=== PATIENT | female | born 1955 | race Caucasian/White ===

== ENCOUNTER 2018-07-23 13:46 | Emergency (ER) | payer OTHER, SELFPAY ==
--- NOTE | 2018-07-23 13:46 | ED_ITS ---
HPI - Abdominal Pain <Phil CRISTINA Marie - Last Filed: 07/23/18 22:41> General Chief Complaint: Abdominal Pain Stated Complaint: Severe L abd. Pain Time Seen by Provider: 07/23/18 13:46 Source: patient Mode of arrival: ambulatory Limitations: no limitations History of Present Illness HPI narrative: 62-year-old female with history of kidney stones denies any surgical history here for complaint of left flank and abdominal pain that started yesterday. She was seen in her clinic on a the eyelid yesterday and was diagnosed with a kidney stone she was placed on tamulosin and hydrocodone. She is flown by [employer] from [place] for further evaluation today. She states she denies having any blood in her urine. No fevers no chills. She denies any trauma to the area. She reports positive p.o. intake. She denies any urinary symptoms. She denies any other concerns or complaints at this time. MD complaint: abdominal pain and flank pain Related Data Home Medications Medication Instructions Recorded Confirmed naproxen sodium [Aleve] 220 mg PO Q DAY PRN #0 04/29/11 Previous Rx's Medication Instructions Recorded tamsulosin [Flomax] 0.4 mg PO QDAY PRN #30 cap 07/29/13 hydrocodone-acetaminophen [Def[place]] 0 PO Q4HP PRN #20 tab 10/31/16 mupirocin 1 dev TOPICAL SEE INSTRUCTIONS #22 11/06/16 gm colchicine 0.6 mg PO QDAY #100 tab 12/25/16 diclofenac sodium [Voltaren] 2 % TOPICAL BID #100 gm 01/09/17 acyclovir [Zovirax] 400 mg PO TID #15 tab 02/12/17 allopurinol 300 mg PO QDAY #90 tab 02/12/17 amoxicillin 500 mg PO BIDCC #40 tab 02/12/17 atorvastatin [Lipitor] 20 mg PO HS #90 tab 02/12/17 benazepril-hydrochlorothiazide 1 tab PO QDAY #90 tab 02/12/17 cyclobenzaprine 10 mg PO PRN #30 tab 05/19/17 ondansetron 4 mg PO Q6-8H PRN #10 tab 07/23/18 oxycodone-acetaminophen [Percocet] 1 tab PO Q4-6H PRN #20 tab 07/23/18 Allergies Allergy/AdvReac Type Severity Reaction Status Date / Time codeine Allergy Verified 07/23/18 15:20 Review of Systems <CRISTINA Schwartz - Last Filed: 07/23/18 22:41> Review of Systems All systems reviewed & are unremarkable except as noted in HPI and below Constitutional Denies chills, Denies fever(s), Denies lethargy and Denies weakness Eyes Denies change in vision, Denies eye discharge, Denies irritation and Denies loss of vision ENT Ears, Nose, Mouth, and Throat: Denies change in voice, Denies neck pain and Denies sore throat Cardiovascular Denies chest pain, Denies irregular heart rhythm, Denies lightheadedness, Denies palpitations, Denies dyspnea, Denies dyspnea on exertion and Denies orthopnea Respiratory Denies cough, Denies dyspnea, Denies dyspnea on exertion and Denies wheezing Gastrointestinal Gastrointestinal: Reports abdominal pain Genitourinary Comments: Flank pain Musculoskeletal Denies neck pain Neurologic Denies confusion, Denies loss of vision and Denies weakness Psychiatric Denies anxiety, Denies confusion, Denies depression, Denies homicidal ideation and Denies suicidal ideation Endocrine Denies palpitations Allergic/Immunologic Denies wheezing Exam <CRISTINA Schwartz - Last Filed: 07/23/18 22:41> Initial Vital Signs Initial Vital Signs: Vital Signs Temperature 98.7 F 07/23/18 13:56 Pulse Rate 87 07/23/18 13:56 Respiratory Rate 16 07/23/18 13:56 Blood Pressure 100/65 07/23/18 13:56 Pulse Oximetry 100 07/23/18 13:56 Const General: cooperative and well developed Nutritional Appearance: well nourished Orientation: alert, awake, oriented x3 and not confused [facility] Mouth: oral mucosae normal and moist mucous membranes Eyes Conjunctivae: conjunctivae normal Sclera: sclerae normal Pupils: PERRL EOM: EOM intact bilaterally Resp Effort & Inspection: normal respiratory effort, able to speak in complete sentences, no respiratory distress and no use of accessory muscles Auscultation: clear to auscultation bilaterally, no rales, no rhonchi and no wheezes Cardio Rate: regular rate Rhythm: regular rhythm Heart Sounds: no click, no gallops, no murmurs and no rubs Pulses: normal peripheral pulses GI Inspection: non-distended Palpation: soft, no hepatosplenomegaly, No guarding, No pulsatile mass and tender (Tenderness to the left lateral abdomen on palpation) Auscultation: normal bowel sounds General: No CVA tenderness Skin General: no rashes or lesions noted, No jaundice and No petechiae Neuro General: alert, oriented x3, gait normal and no focal motor deficits Speech: speech normal <Alistair Matos DO - Last Filed: 07/24/18 03:45> Initial Vital Signs Initial Vital Signs: Vital Signs Temperature 98.7 F 07/23/18 13:56 Pulse Rate 87 07/23/18 13:56 Respiratory Rate 16 07/23/18 13:56 Blood Pressure 100/65 07/23/18 13:56 Pulse Oximetry 100 07/23/18 13:56 Course <CRISTINA Schwartz - Last Filed: 07/23/18 22:41> Orders Ordered: Discontinued Medications Hydromorphone HCl (Dilaudid) 0.5 mg IV NOW ONE Stop: 07/23/18 15:20 Last Admin: 07/23/18 15:28 Dose: 0.5 mg Hydromorphone HCl (Dilaudid) 0.5 mg IV NOW ONE Stop: 07/23/18 19:04 Last Admin: 07/23/18 19:11 Dose: 0.5 mg Hydromorphone HCl (Dilaudid) 0.5 mg IV NOW ONE Stop: 07/23/18 20:45 Last Admin: 07/23/18 20:49 Dose: 0.5 mg Sodium Chloride (Normal Saline 0.9%) 1,000 mls @ 150 mls/hr IV CONT GUERO Last Infusion: 07/23/18 21:53 Dose: 0 mls/hr Admin: 07/23/18 15:28 Dose: 150 mls/hr Ketorolac Tromethamine (Toradol) 15 mg INJ NOW ONE Stop: 07/23/18 15:52 Last Admin: 07/23/18 15:52 Dose: 15 mg Ondansetron HCl (Zofran) 4 mg IV NOW ONE Stop: 07/23/18 21:02 Last Admin: 07/23/18 21:02 Dose: 4 mg Vital Signs - 8 hr 07/23/18 21:06 Pulse Rate 89 Respiratory Rate 14 Blood Pressure [Right Arm] 128/87 H Pulse Oximetry 97 <Alistair Matos DO - Last Filed: 07/24/18 03:45> Orders Ordered: Discontinued Medications Hydromorphone HCl (Dilaudid) 0.5 mg IV NOW ONE Stop: 07/23/18 15:20 Last Admin: 07/23/18 15:28 Dose: 0.5 mg Hydromorphone HCl (Dilaudid) 0.5 mg IV NOW ONE Stop: 07/23/18 19:04 Last Admin: 07/23/18 19:11 Dose: 0.5 mg Hydromorphone HCl (Dilaudid) 0.5 mg IV NOW ONE Stop: 07/23/18 20:45 Last Admin: 07/23/18 20:49 Dose: 0.5 mg Sodium Chloride (Normal Saline 0.9%) 1,000 mls @ 150 mls/hr IV CONT GUERO Last Infusion: 07/23/18 21:53 Dose: 0 mls/hr Admin: 07/23/18 15:28 Dose: 150 mls/hr Ketorolac Tromethamine (Toradol) 15 mg INJ NOW ONE Stop: 07/23/18 15:52 Last Admin: 07/23/18 15:52 Dose: 15 mg Ondansetron HCl (Zofran) 4 mg IV NOW ONE Stop: 07/23/18 21:02 Last Admin: 07/23/18 21:02 Dose: 4 mg Vital Signs - 8 hr 07/23/18 21:06 Pulse Rate 89 Respiratory Rate 14 Blood Pressure [Right Arm] 128/87 H Pulse Oximetry 97 MDM - Abdominal Pain <CRISTINA Schwartz - Last Filed: 07/23/18 22:41> Lab Data Result diagrams: 07/23/18 14:38 07/23/18 14:38 Lab Results 07/23/18 07/23/18 Range/Units 14:38 14:38 WBC 11.1 H (4.5-11.0) X10^3/uL RBC 4.56 (4.0-5.2) X10^6/uL Hgb 13.8 (12.0-16.0) g/dL Hct 40.3 (36-46) % MCV 88.4 (80-100) fL MCH 30.2 (26-34) PG MCHC 34.2 (30-36) % RDW 14.4 (11.6-14.8) % Plt Count 196 (150-400) X10^3/uL Neut % (Auto) 77.3 H (50-75) % Lymph % (Auto) 14.6 L (25-40) % [place] % (Auto) 6.1 (3-14) % Eos % (Auto) 1.3 L (2-4) % Baso % (Auto) 0.7 (0-2) % Neut # (Auto) 8600 H (3346-5662) /uL Sodium 137 (137-145) mmol/L Potassium 4.0 (3.4-5.1) mmol/L Chloride 98 (98-107) mmol/L Carbon Dioxide 31 (22-32) mmol/L BUN 21 H (7-17) mg/dL Creatinine 1.00 (0.52-1.04) mg/dL Estimated GFR 55.8 L (>60) mL/min BUN/Creatinine Ratio 21.0 (6-22) Glucose 94 (80-110) mg/dL Calcium 9.0 (8.4-10.2) mg/dL Total Bilirubin 0.9 (0.2-1.3) mg/dL AST 22 (14-36) IU/L ALT 28 (9-52) IU/L Alkaline Phosphatase 86 (38-126) U/L Total Protein 6.2 L (6.3-8.2) g/dL Albumin 3.6 (3.5-5.0) g/dL Globulin 2.6 (1.7-4.1) g/dL Albumin/Globulin Ratio 1.4 (1.0-2.8) Lipase 372 H (23-300) U/L Point of care testing: Urine Dip Bedside Urine Glucose Negative Bedside Urine Bilirubin - Negative Bedside Urine Ketone - Negative Urine Specific [place] 1.015 Bedside Urine Occult Blood +++ Bedside Urine pH 5.5 Bedside Urine Protein - Negative Bedside Urine Urobilinogen - Negative Bedside Urine Nitrite - Negative Bedside Urine Leukocytes - Negative Esterase Imaging Data CT scan - abdomen: Radiologist's impression: PROCEDURE: CT ABDOMEN PELVIS W CON INDICATIONS: Pain into the left flank and left lower quadrant area TECHNIQUE: After the administration of intravenous contrast, 5 mm thick sections acquired from the diaphragm to the symphysis. 5 mm coronal and sagittal reformats were acquired. For radiation dose reduction, the following was used: automated exposure control, adjustment of mA and/or kV according to patient size. COMPARISON: [facility], CT, ABDOMEN/PELVIS WITH CONTRAST, 04/14/2011, 8: 31. [facility], CT, ABDOMEN/PELVIS WITH CONTRAST, 04/07/2011, 21:42. FINDINGS: Image quality: Excellent. ABDOMEN: Lung bases: Lung bases are clear except for minimal atelectasis at the right lower lobe. Heart size is normal. Solid organs: Liver is normal in size and enhancement. Gallbladder appears normal. Biliary system is non dilated. Pancreas enhances normally. Spleen is normal in size and enhancement. No adrenal nodules. Kidneys demonstrate normal size and enhancement, without hydronephrosis on the right but there is a 6 mm calculus at the lower third collecting system of the right kidney, nonobstructive. In contrast the left kidney shows a slight degree of perinephric edema and moderate hydronephrosis and there is a 3 x 4 mm calculus within the lower third collecting system of the left kidney, nonobstructive. The obstructive influence is at the left ureteral pelvic junction where a 10 mm AP and 7 mm transverse dimension calculus can be seen, impacted, with homogeneous high density measuring up to 917 Hounsfield units. Peritoneum and bowel: Bowel loops demonstrate normal wall thickness and caliber. No free fluid or air. Nodes and vessels: No retroperitoneal or mesenteric adenopathy by size criteria. Aorta and inferior vena cava are normal in size. Miscellaneous: There is a pelvic ventral hernia containing small bowel content through a body wall defect that measures up to 7 mm at the midline rectus sheath. This is located at the axial level of the anterior superior iliac spines and extends inferiorly within the subcutaneous fat of the pannus. PELVIS: Genitourinary: Bladder wall thickness is normal. Miscellaneous: No inguinal hernias or adenopathy. Bones: No suspicious bony lesions. No vertebral body compression fractures. IMPRESSION: High-grade left urinary tract obstruction due to the presence of a 7 x 10 mm impacted high density proximal left ureteropelvic junction calculus, producing mild perinephric edema. Bilateral renal collecting system calculi are also present within the lower third portion of each kidney, neither of which are obstructive. Moderately large ventral hernia at the midline of the abdomen/pelvis junction, and tracking inferiorly within the subcutaneous fat of the pannus. This measures up to 10 cm in transverse dimension and 8 cm AP. Incarceration or strangulation is not seen and no associated bowel obstruction is found. Dictated by: Tima Iglesias M.D. on 07/23/2018 at 16:13 Approved by: Tima Iglesias M.D. on 07/23/2018 at 16:19 MDM Narrative Medical decision making narrative: CBC was obtained was unremarkable. Chem panel shows elevated lipase otherwise is unremarkable. Urinalysis shows blood in her urine was negative for urinary tract infection. CT of the abdomen shows a large 7 mm x 10 mm stone into the utero pelvic junction. Discussed case with Urology Dr. Carrasquillo at who states that they would accept her however they do not have any beds at this time. She is placed on Percocet for pain and has tamulosin . Zofran is prescribed for nausea. She is to call the kidney stone center Thursday for follow-up. For any worsening symptoms return to the emergency room. <Alistair Matos, - Last Filed: 07/24/18 03:45> Lab Data Lab Results 07/23/18 07/23/18 Range/Units 14:38 14:38 WBC 11.1 H (4.5-11.0) X10^3/uL RBC 4.56 (4.0-5.2) X10^6/uL Hgb 13.8 (12.0-16.0) g/dL Hct 40.3 (36-46) % MCV 88.4 (80-100) fL MCH 30.2 (26-34) PG MCHC 34.2 (30-36) % RDW 14.4 (11.6-14.8) % Plt Count 196 (150-400) X10^3/uL Neut % (Auto) 77.3 H (50-75) % Lymph % (Auto) 14.6 L (25-40) % [place] % (Auto) 6.1 (3-14) % Eos % (Auto) 1.3 L (2-4) % Baso % (Auto) 0.7 (0-2) % Neut # (Auto) 8600 H (4080-3042) /uL Sodium 137 (137-145) mmol/L Potassium 4.0 (3.4-5.1) mmol/L Chloride 98 (98-107) mmol/L Carbon Dioxide 31 (22-32) mmol/L BUN 21 H (7-17) mg/dL Creatinine 1.00 (0.52-1.04) mg/dL Estimated GFR 55.8 L (>60) mL/min BUN/Creatinine Ratio 21.0 (6-22) Glucose 94 (80-110) mg/dL Calcium 9.0 (8.4-10.2) mg/dL Total Bilirubin 0.9 (0.2-1.3) mg/dL AST 22 (14-36) IU/L ALT 28 (9-52) IU/L Alkaline Phosphatase 86 (38-126) U/L Total Protein 6.2 L (6.3-8.2) g/dL Albumin 3.6 (3.5-5.0) g/dL Globulin 2.6 (1.7-4.1) g/dL Albumin/Globulin Ratio 1.4 (1.0-2.8) Lipase 372 H (23-300) U/L Point of care testing: Urine Dip Bedside Urine Glucose Negative Bedside Urine Bilirubin - Negative Bedside Urine Ketone - Negative Urine Specific Karnack 1.015 Bedside Urine Occult Blood +++ Bedside Urine pH 5.5 Bedside Urine Protein - Negative Bedside Urine Urobilinogen - Negative Bedside Urine Nitrite - Negative Bedside Urine Leukocytes - Negative Esterase Discharge Plan Departure Patient Disposition: Home Clinical Impression: Nephrolithiasis Discharge Date/Time: 07/23/18 21:53 Interventions: ED Discharge Assessment Last Done: 07/23/18 21:52 Instructions: DI for Kidney Stones Activity Restrictions/Additional Instructions: CT of the abdomen pelvis shows a large stone of 7 mm to 10 mm stone in your left ureter. You will need to see Urology for this as the stone appears to be too large to pass. Call kidney stone center at at [phone] Thursday morning to schedule follow-up appointment beginning of next week. You have been prescribed Percocet to help with pain use as directed. No driving while on the Percocet. May also use [id number] ibuprofen. Zofran is prescribed to help with nausea also use as directed. Use tamulosin as already prescribed. For any worsening symptoms return to the emergency room. Prescriptions: New oxycodone-acetaminophen [Percocet] 5-325 mg tablet 1 tab PO Q4-6H PRN (Reason: pain) Qty: 20 RF: 0 ondansetron 4 mg tablet,disintegrating 4 mg PO Q6-8H PRN (Reason: nausea and vomiting) Qty: 10 RF: 0 No Action naproxen sodium [Aleve] 220 MG tablet 220 mg PO Q DAY PRN Qty: 0 RF: 0 tamsulosin [Flomax] 0.4 MG capsule,extended release 24hr 0.4 mg PO QDAY PRNQty: 30 RF: 1 hydrocodone-acetaminophen [Def[place]] 5 MG/325 MG tablet PO Q4HP PRNQty: 20 RF: 0 mupirocin 2 % ointment 1 dev Topical SEE INSTRUCTIONS Qty: 22 RF: 0 colchicine 0.6 MG tablet 0.6 mg PO QDAY Qty: 100 RF: 0 diclofenac sodium [Voltaren] 1 % gel 2 % Topical BID Qty: 100 RF: 1 atorvastatin [Lipitor] 20 MG tablet 20 mg PO HS Qty: 90 RF: 3 benazepril-hydrochlorothiazide 20 MG/25 MG tablet 1 tab PO QDAY Qty: 90 RF: 3 acyclovir [Zovirax] 400 MG tablet 400 mg PO TID Qty: 15 RF: 3 allopurinol 300 MG tablet 300 mg PO QDAY Qty: 90 RF: 3 amoxicillin 500 MG tablet 500 mg PO BIDCC Qty: 40 RF: 0 cyclobenzaprine 10 MG tablet 10 mg PO PRN Qty: 30 RF: 1 Referrals: [facility] [Provider Group] <Alistair Matos, - Last Filed: 07/24/18 03:45> Cosign ED Attending Shoshanaature Attestation: I was immediately available in the department for consultation. Documentation has been reviewed. I agree with assessment and plan.
[2018-07-23 13:56] VITALS: BP 100/65; PULSE 87; RESP 16; TEMP 37.1; O2SAT 100
--- NOTE | 2018-07-23 14:23 | DI.CT.S_ITS ---
PROCEDURE: CT ABDOMEN PELVIS W CON INDICATIONS: Pain into the left flank and left lower quadrant area TECHNIQUE: After the administration of intravenous contrast, 5 mm thick sections acquired from the diaphragm to the symphysis. 5 mm coronal and sagittal reformats were acquired. For radiation dose reduction, the following was used: automated exposure control, adjustment of mA and/or kV according to patient size. COMPARISON: [facility], CT, ABDOMEN/PELVIS WITH CONTRAST, 04/14/2011, 8:31. [facility], CT, ABDOMEN/PELVIS WITH CONTRAST, 04/07/2011, 21:42. FINDINGS: Image quality: Excellent. ABDOMEN: Lung bases: Lung bases are clear except for minimal atelectasis at the right lower lobe. Heart size is normal. Solid organs: Liver is normal in size and enhancement. Gallbladder appears normal. Biliary system is non dilated. Pancreas enhances normally. Spleen is normal in size and enhancement. No adrenal nodules. Kidneys demonstrate normal size and enhancement, without hydronephrosis on the right but there is a 6 mm calculus at the lower third collecting system of the right kidney, nonobstructive. In contrast the left kidney shows a slight degree of perinephric edema and moderate hydronephrosis and there is a 3 x 4 mm calculus within the lower third collecting system of the left kidney, nonobstructive. The obstructive influence is at the left ureteral pelvic junction where a 10 mm AP and 7 mm transverse dimension calculus can be seen, impacted, with homogeneous high density measuring up to 917 Hounsfield units. Peritoneum and bowel: Bowel loops demonstrate normal wall thickness and caliber. No free fluid or air. Nodes and vessels: No retroperitoneal or mesenteric adenopathy by size criteria. Aorta and inferior vena cava are normal in size. Miscellaneous: There is a pelvic ventral hernia containing small bowel content through a body wall defect that measures up to 7 mm at the midline rectus sheath. This is located at the axial level of the anterior superior iliac spines and extends inferiorly within the subcutaneous fat of the pannus. PELVIS: Genitourinary: Bladder wall thickness is normal. Miscellaneous: No inguinal hernias or adenopathy. Bones: No suspicious bony lesions. No vertebral body compression fractures. IMPRESSION: High-grade left urinary tract obstruction due to the presence of a 7 x 10 mm impacted high density proximal left ureteropelvic junction calculus, producing mild perinephric edema. Bilateral renal collecting system calculi are also present within the lower third portion of each kidney, neither of which are obstructive. Moderately large ventral hernia at the midline of the abdomen/pelvis junction, and tracking inferiorly within the subcutaneous fat of the pannus. This measures up to 10 cm in transverse dimension and 8 cm AP. Incarceration or strangulation is not seen and no associated bowel obstruction is found. Dictated by: Tima Iglesias M.D. on 07/23/2018 at 16:13 Approved by: Tima Iglesias M.D. on 07/23/2018 at 16:19
[2018-07-23 14:34] VITALS: BP 112/60; PULSE 86; RESP 18; O2SAT 94
[2018-07-23 14:50] LABS: Add Manual Diff / Slide Review NO; Basophils Percent Auto 0.7 % (0-2); Eosinophils Percent Auto 1.3 % (2-4); Hematocrit 40.3 % (36-46); Hemoglobin 13.8 g/dL (12.0-16.0); Lymphocytes Percent Auto 14.6 % (25-40); Mean Corpuscular HGB Conc 34.2 % (30-36); Mean Corpuscular Hemoglobin 30.2 PG (26-34); Mean Corpuscular Volume 88.4 fL (80-100); Monocytes Percent Auto 6.1 % (3-14); Neutrophils Absolute Auto 8600 /uL (3000-5900); Neutrophils Percent Auto 77.3 % (50-75); Platelet Count 196 X10^3/uL (150-400); Red Blood Cell Count 4.56 X10^6/uL (4.0-5.2); Red Cell Distribution Width 14.4 % (11.6-14.8); White Blood Cell Count 11.1 X10^3/uL (4.5-11.0)
[2018-07-23 15:10] LABS: Alanine Aminotransferase 28 IU/L (9-52); Albumin 3.6 g/dL (3.5-5.0); Albumin Globulin Ratio 1.4 (1.0-2.8); Alkaline Phosphatase 86 U/L (38-126); Aspartate Aminotransferase 22 IU/L (14-36); Bilirubin Total 0.9 mg/dL (0.2-1.3); Blood Urea Nitrogen 21 mg/dL (7-17); Carbon Dioxide 31 mmol/L (22-32); Chloride 98 mmol/L (98-107); Estimated Glomerular Filt Rate 55.8 mL/min (>60); Globulin 2.6 g/dL (1.7-4.1); Glucose 94 mg/dL (80-110); HEMOLYSIS < 15 (0-50); Lipase 372 U/L (23-300); Sodium 137 mmol/L (137-145); Total Protein 6.2 g/dL (6.3-8.2)
[2018-07-23] MEDS: HYDROMORPHONE 1 MG INJ 0.5 MG IV ×3 (15:28→20:49)
[2018-07-23] MEDS: SODIUM CHLORIDE 0.9% 1,000 ML 150 ML IV (15:28)
--- NOTE | 2018-07-23 15:41 | PC.NURSE ---
Reports increased pain on return from CT. Provider aware
[2018-07-23] MEDS: KETOROLAC 60 MG/2 ML VIAL 15 MG INJ (15:52)
--- NOTE | 2018-07-23 16:04 | PC.NURSE ---
States pain is improving after toradol
--- NOTE | 2018-07-23 17:45 | PC.NURSE ---
S/W pt about transfer VS admit or go home. Pt is very teary over not being admitted here and states doesnt have anyone to come and get her.
[2018-07-23 18:47] VITALS: BP 131/91; PULSE 95; RESP 16; O2SAT 95
[2018-07-23 19:16] VITALS: BP 135/81; PULSE 91; RESP 16; O2SAT 93
--- NOTE | 2018-07-23 19:45 | PC.NURSE ---
pt tearful and aksing what is taking so long. I explained the process of what is next and notified provider and MANUFACT[employer]OLOG[employer] PROFESSOR to see where we are at in getting a bed at or dispo home. Provider took call from and consulted with patient.
--- NOTE | 2018-07-23 20:00 | PC.NURSE ---
pt says friend efrain is just getting out of the shower and will be here in about an hour. pt provided ice water and crackers.
[2018-07-23] MEDS: ONDANSETRON 4 MG/2 ML INJ IV (21:02)
[2018-07-23 21:06] VITALS: BP 128/87; PULSE 89; RESP 14; O2SAT 97
== END 2018-07-23 21:53 | disposition home or self-care (01) ==
PROVIDERS: Emergency Provider Nurse Practitioner Family
DX: N20.0 Calculus of kidney (principal)
CPT/HCPCS: 74177; 80053; 81003; 83690; 85025; 96361; 96372; 96374; 96375; 96376; 99283; 99285; J1170; J1885; J2405; Q9967

== ENCOUNTER 2019-02-12 17:25 | Emergency (ER) | payer OTHER, SELFPAY ==
[2019-02-12 18:16] VITALS: BP 146/104; PULSE 98; RESP 22; TEMP 36.4; O2SAT 98; BMI 42.0
--- NOTE | 2019-02-12 19:34 | ED.FEMALEGU ---
HPI - Female Genitourinary <Pennie Maya, TYPING BOOKKEEPER-BC - Last Filed: 02/12/19 21:56> General Chief complaint: Urogenital-Female Stated complaint: thinks kidney stones Time Seen by Provider: 02/12/19 19:02 Source: patient Mode of arrival: ambulatory Limitations: no limitations History of Present Illness HPI Narrative: Patient is a 63-year-old female smoker who presents with a chief complaint of left flank pain. She has a history of kidney stones and has required lithotripsy beforehand. She feels as though she has another kidney stone and has taken oxycodone, Zofran and Thalia losartan. She denies any dysuria urgency or frequency. She states the pain is constant comes in waves 10. She complains of some nausea and vomiting. She denies any chest pain or shortness of breath. She denies any fevers. She denies any abdominal pain. The patient has taken her on Flomax, Zofran and oxycodone prior to arrival. She says she spoke with her primary care physician, who is concerned that she has another kidney stone. Related Data Home Medications Medication Instructions Recorded Confirmed naproxen sodium [Aleve] 220 mg PO Q DAY PRN #0 04/29/11 Previous Rx's Medication Instructions Recorded tamsulosin [Flomax] 0.4 mg PO QDAY PRN #30 cap 07/29/13 hydrocodone-acetaminophen [Pound] 0 PO Q4HP PRN #20 tab 10/31/16 mupirocin 1 dev TOPICAL SEE INSTRUCTIONS #22 11/06/16 gm colchicine 0.6 mg PO QDAY #100 tab 12/25/16 diclofenac sodium [Voltaren] 2 % TOPICAL BID #100 gm 01/09/17 acyclovir [Zovirax] 400 mg PO TID #15 tab 02/12/17 allopurinol 300 mg PO QDAY #90 tab 02/12/17 amoxicillin 500 mg PO BIDCC #40 tab 02/12/17 atorvastatin [Lipitor] 20 mg PO HS #90 tab 02/12/17 benazepril-hydrochlorothiazide 1 tab PO QDAY #90 tab 02/12/17 cyclobenzaprine 10 mg PO PRN #30 tab 05/19/17 ondansetron 4 mg PO Q6-8H PRN #10 tab 07/23/18 oxycodone-acetaminophen [Percocet] 1 tab PO Q4-6H PRN #20 tab 07/23/18 ondansetron 4 mg PO TID-QID PRN #30 tab 02/12/19 oxycodone-acetaminophen [Percocet] 1 tab PO Q4-6H PRN #20 tab 02/12/19 Allergies Allergy/AdvReac Type Severity Reaction Status Date / Time ciprofloxacin [From Cipro] Allergy Muscle Pain Verified 02/12/19 18:22 codeine Allergy Verified 02/12/19 18:22 Review of Systems <CHILO Person - Last Filed: 02/12/19 21:56> Review of Systems GENERAL: Denies chills, fatigue, malaise, fever, sweats. HEENT: Denies sinus pain, ear pain, sore throat, difficulty swallowing, dizziness. RESPIRATORY: Denies dyspnea, cough, wheezing, hemoptysis, sputum. CARDIOVASCULAR: Denies chest pain, palpitations, orthopnea, edema, GASTROINTESTINAL: See HPI : See HPI MUSCULOSKELETAL: denies weakness, joint pain, or bony pain SKIN: Denies rash, skin lesions, or other NEUROLOGIC: Denies weakness, headache, numbness, change in speech, confusion, seizures, incoordination. PSYCHIATRIC: No concerning psychosocial issues. 12 point review of systems is negative except for those stated above PFSH <CHILO Person - Last Filed: 02/12/19 21:56> Social History Smoking Status: Current every day smoker Exam <CHILO Person - Last Filed: 02/12/19 21:56> Narrative Exam Narrative: GENERAL: This is a well-nourished, well-developed patient, lying on side HEAD: Atraumatic. Normocephalic. No temporal or scalp tenderness. EYES: Pupils equal round and reactive. Extraocular motions intact. No scleral icterus. No injection or drainage. ENT: Nose without bleeding, purulent drainage or septal hematoma. Throat without erythema, tonsillar hypertrophy or exudate. Uvula midline. Airway patent. NECK: Trachea midline. No JVD or lymphadenopathy. Supple, nontender, no meningeal signs. CARDIOVASCULAR: Regular rate and rhythm without murmurs, gallops, or rubs. RESPIRATORY: Clear to auscultation. Breath sounds equal bilaterally. No wheezes, rales, or rhonchi. No cough. No accessory muscle use. No increased respiratory effort. GASTROINTESTINAL: Abdomen obese, soft, non-tender, nondistended. No hepato-splenomegaly, or palpable masses. No guarding. Active bowel sounds all 4 quadrants. EXTREMITIES: No clubbing, cyanosis, or edema. No joint tenderness, effusion, or edema noted. BACK: Nontender without deformity or crepitance. CVA tenderness noted on left side. NEURO: AOx3. SKIN: No rash or erythema. Initial Vital Signs Initial Vital Signs: Vital Signs Temperature 97.6 F 02/12/19 18:16 Pulse Rate 98 H 02/12/19 18:16 Respiratory Rate 22 02/12/19 18:16 Blood Pressure 146/104 H 02/12/19 18:16 Pulse Oximetry 98 02/12/19 18:16 <Karen Cuevas DO - Last Filed: 02/13/19 04:32> Initial Vital Signs Initial Vital Signs: Vital Signs Temperature 97.6 F 02/12/19 18:16 Pulse Rate 98 H 02/12/19 18:16 Respiratory Rate 22 02/12/19 18:16 Blood Pressure 146/104 H 02/12/19 18:16 Pulse Oximetry 98 02/12/19 18:16 Course <GABRIEL Person-BC - Last Filed: 02/12/19 21:56> Course Narrative: I checked on the patient several times throughout her stay in the emergency department. Of note she did complain of slight acid reflux after lying down for a long period of time, so she was given Tums in the emergency department. She states she takes this at home and has no problems with it. Orders Ordered: ED Orders 02/12/19 19:55 Amylase Stat Complete Blood Count AUTO DIFF Stat Comprehensive Metabolic Panel Stat Lipase Stat 02/12/19 20:21 CT kidney ureter bladder (KUB) Stat Discontinued Medications Calcium Carbonate (Tums) 500 mg PO NOW ONE Stop: 02/12/19 21:52 Last Admin: 02/12/19 22:15 Dose: Not Given Hydromorphone HCl (Dilaudid) 0.5 mg IV NOW ONE Stop: 02/12/19 19:37 Last Admin: 02/12/19 19:57 Dose: 0.5 mg Sodium Chloride (Normal Saline 0.9%) 1,000 mls @ 1,000 mls/hr IV BOLUS ONE Stop: 02/12/19 20:18 Last Infusion: 02/12/19 22:24 Dose: 0 mls/hr Admin: 02/12/19 19:56 Dose: 1,000 mls/hr Ketorolac Tromethamine (Toradol) 15 mg IV NOW ONE Stop: 02/12/19 19:20 Last Admin: 02/12/19 19:57 Dose: 15 mg Ondansetron HCl (Zofran) 4 mg IV NOW ONE Stop: 02/12/19 19:20 Last Admin: 02/12/19 19:56 Dose: 4 mg Ondansetron HCl (Zofran Odt Prepack) 1 bottle MISC SEEINSTR ONE Stop: 02/12/19 21:30 Last Admin: 02/12/19 22:14 Dose: 1 bottle Oxycodone/Acetaminophen (Endocet 5/325 Prepack) 1 bottle MISC SEEINSTR ONE Stop: 02/12/19 21:30 Last Admin: 02/12/19 22:14 Dose: 1 bottle Vital Signs - 8 hr 02/12/19 21:51 02/12/19 22:24 Pulse Rate 94 H 101 H Respiratory Rate 18 18 Blood Pressure 138/86 128/86 Pulse Oximetry 94 95 <Karen Cuevas, DO - Last Filed: 02/13/19 04:32> Orders Ordered: ED Orders 02/12/19 19:55 Amylase Stat Complete Blood Count AUTO DIFF Stat Comprehensive Metabolic Panel Stat Lipase Stat 02/12/19 20:21 CT kidney ureter bladder (KUB) Stat Discontinued Medications Calcium Carbonate (Tums) 500 mg PO NOW ONE Stop: 02/12/19 21:52 Last Admin: 02/12/19 22:15 Dose: Not Given Hydromorphone HCl (Dilaudid) 0.5 mg IV NOW ONE Stop: 02/12/19 19:37 Last Admin: 02/12/19 19:57 Dose: 0.5 mg Sodium Chloride (Normal Saline 0.9%) 1,000 mls @ 1,000 mls/hr IV BOLUS ONE Stop: 02/12/19 20:18 Last Infusion: 02/12/19 22:24 Dose: 0 mls/hr Admin: 02/12/19 19:56 Dose: 1,000 mls/hr Ketorolac Tromethamine (Toradol) 15 mg IV NOW ONE Stop: 02/12/19 19:20 Last Admin: 02/12/19 19:57 Dose: 15 mg Ondansetron HCl (Zofran) 4 mg IV NOW ONE Stop: 02/12/19 19:20 Last Admin: 02/12/19 19:56 Dose: 4 mg Ondansetron HCl (Zofran Odt Prepack) 1 bottle MISC SEEINSTR ONE Stop: 02/12/19 21:30 Last Admin: 02/12/19 22:14 Dose: 1 bottle Oxycodone/Acetaminophen (Endocet 5/325 Prepack) 1 bottle MISC SEEINSTR ONE Stop: 02/12/19 21:30 Last Admin: 02/12/19 22:14 Dose: 1 bottle Vital Signs - 8 hr 02/12/19 21:51 02/12/19 22:24 Pulse Rate 94 H 101 H Respiratory Rate 18 18 Blood Pressure 138/86 128/86 Pulse Oximetry 94 95 MDM - Female Genitourinary <GABRIEL Person- - Last Filed: 02/12/19 21:56> Lab Data Result diagrams: 02/12/19 19:55 02/12/19 19:55 Lab Results 02/12/19 02/12/19 02/12/19 Range/Units 17:35 19:55 19:55 WBC 11.1 H (4.5-11.0) X10^3/uL RBC 5.27 H (4.0-5.2) X10^6/uL Hgb 15.7 (12.0-16.0) g/dL Hct 47.0 H (36-46) % MCV 89.2 (80-100) fL MCH 29.9 (26-34) PG MCHC 33.5 (30-36) % RDW 14.0 (11.6-14.8) % Plt Count 221 (150-400) X10^3/uL Neut % (Auto) 82.3 H (50-75) % Lymph % (Auto) 11.3 L (25-40) % [place] % (Auto) 5.7 (3-14) % Eos % (Auto) 0.2 L (2-4) % Baso % (Auto) 0.5 (0-2) % Neut # (Auto) 9100 H (7426-5577) /uL Lymph # (Auto) 1300 (9544-7768) /uL [place] # (Auto) 600 (0-900) /uL Eos # (Auto) 0 (0-450) /uL Baso # (Auto) 100 (0-100) /uL Sodium 136 L (137-145) mmol/L Potassium 3.7 (3.4-5.1) mmol/L Chloride 100 (98-107) mmol/L Carbon Dioxide 27 (22-32) mmol/L BUN 18 H (7-17) mg/dL Creatinine 0.80 (0.52-1.04) mg/dL Estimated GFR > 60.0 (>60) mL/min BUN/Creatinine Ratio 22.5 H (6-22) Glucose 104 (80-110) mg/dL Calcium 9.5 (8.4-10.2) mg/dL Total Bilirubin 1.0 (0.2-1.3) mg/dL AST 31 (14-36) IU/L ALT 34 (9-52) IU/L Alkaline Phosphatase 94 (38-126) U/L Total Protein 6.9 (6.3-8.2) g/dL Albumin 4.1 (3.5-5.0) g/dL Globulin 2.8 (1.7-4.1) g/dL Albumin/Globulin Ratio 1.5 (1.0-2.8) Amylase (30-110) U/L Lipase (23-300) U/L Urine RBC 0-1/hpf (0-5/HPF) Urine WBC 0-1/hpf (0-5/HPF) Ur Squamous Epith Cells 0-1 /hpf Urine Bacteria Few (2-10) H (None) Ur Culture Indicated? Cult not indicated 02/12/19 Range/Units 19:55 WBC (4.5-11.0) X10^3/uL RBC (4.0-5.2) X10^6/uL Hgb (12.0-16.0) g/dL Hct (36-46) % MCV (80-100) fL MCH (26-34) PG MCHC (30-36) % RDW (11.6-14.8) % Plt Count (150-400) X10^3/uL Neut % (Auto) (50-75) % Lymph % (Auto) (25-40) % [place] % (Auto) (3-14) % Eos % (Auto) (2-4) % Baso % (Auto) (0-2) % Neut # (Auto) (8409-0216) /uL Lymph # (Auto) (3915-5279) /uL [place] # (Auto) (0-900) /uL Eos # (Auto) (0-450) /uL Baso # (Auto) (0-100) /uL Sodium (137-145) mmol/L Potassium (3.4-5.1) mmol/L Chloride (98-107) mmol/L Carbon Dioxide (22-32) mmol/L BUN (7-17) mg/dL Creatinine (0.52-1.04) mg/dL Estimated GFR (>60) mL/min BUN/Creatinine Ratio (6-22) Glucose (80-110) mg/dL Calcium (8.4-10.2) mg/dL Total Bilirubin (0.2-1.3) mg/dL AST (14-36) IU/L ALT (9-52) IU/L Alkaline Phosphatase (38-126) U/L Total Protein (6.3-8.2) g/dL Albumin (3.5-5.0) g/dL Globulin (1.7-4.1) g/dL Albumin/Globulin Ratio (1.0-2.8) Amylase 49 (30-110) U/L Lipase 61 (23-300) U/L Urine RBC (0-5/HPF) Urine WBC (0-5/HPF) Ur Squamous Epith Cells Urine Bacteria (None) Ur Culture Indicated? Urine Dip Bedside Urine Glucose Negative Bedside Urine Bilirubin - Negative Bedside Urine Ketone - Negative Urine Specific [place] 1.030 Bedside Urine Occult Blood +/- Bedside Urine pH 5.5 Bedside Urine Protein - Negative Bedside Urine Urobilinogen - Negative Bedside Urine Nitrite - Negative Bedside Urine Leukocytes - Negative Esterase Imaging Data ct KUB: Radiologist's impression: [address] [address] [address] Scan Report Signed Patient: Shayy Arango RMR#: [id number] : 3Acct:[id number] Age/Sex: 63 / FDate of Service: 02/12/19 Loc: ED Accession Number: [id number] Procedure: CT kidney ureter bladder (KUB) Ordering Provider: Pennie Maya- PROCEDURE: CT KIDNEY URETER BLADDER (KUB) INDICATIONS: flank pain, hx stone TECHNIQUE: Noncontrast 5 mm thick sections acquired from the diaphragms to the symphysis. 5 mm thick coronal and sagittal reformats were then performed. For radiation dose reduction, the following was used: automated exposure control, adjustment of mA and/or kV according to patient size. COMPARISON: [facility], CT, CT ABDOMEN PELVIS W CON, 07/23/2018, 15:14. FINDINGS: Image quality: Excellent. Lung bases: Lung bases are clear. Heart size is normal. Urinary system: Both kidneys are normal in size. Right renal cyst is stable. There is a 5 mm stone in the distal left ureter causing moderate left-sided hydronephrosis. A cluster of stones noted in the inferior pole of the right kidney. Small 1 mm nonobstructing stones noted in the inferior pole of the left kidney range in size from 4 mm-8 mm.. There is left perirenal stranding which could be due to hydronephrosis versus superimpose urinary tract infection. Bladder wall thickness is normal; no calcified bladder stones. Other solid organs: Liver is normal in size. Gallbladder is within normal limits. Pancreas is normal in contours. Spleen is normal in size. No adrenal nodules. Peritoneum and bowel: Unenhanced bowel loops demonstrate normal wall thickness and caliber. Colonic diverticuli without evidence of diverticulitis. The appendix is not visualized, however no free fluid or inflammatory changes noted adjacent to the cecum. No free fluid or air. Nodes and vessels: No retroperitoneal or mesenteric adenopathy by size criteria. Aorta and inferior vena cava are normal in caliber. Abdominal wall: Large periumbilical ventral hernia which contain unremarkable appearing loops of bowel is stable compared to prior exam. Pelvis: No free pelvic fluid. No inguinal hernias or adenopathy. Bones: No suspicious bony lesions. No vertebral body compression fractures. Spine degenerative disease and facet arthropathy noted. IMPRESSION: 1. 5 mm distal left ureteral stone causing moderate left-sided hydronephrosis. 2. Bilateral nonobstructing renal cortical stones. 3. Left renal perinephric stranding which could be related to hydronephrosis, or superimpose pyelonephrosis cannot be differentiated by CT imaging alone. Recommend correlation with urinalysis data. 3. Large periumbilical ventral hernia which contains unremarkable appearing loops of bowel stable compared to prior examination. Dictated by: Shahida Banks MD, PhD on 02/12/2019 at 20:50 Approved by: Shahida Banks MD, PhD on 02/12/2019 at 20:56 [facility] Narrative Medical decision making narrative: The patient is a 63-year-old female with history of kidney stones who presents with chief complaint of left-sided flank pain. She had slight blood on her UA, but no nitrates and no leukocyte esterase. She has a [address] at the distal ureter. She is noted to have left renal perinephric stranding, which could be attributed to either pyelonephritis or hydronephrosis. Given that she does not have any leukocyte esterase, no nitrates is not febrile and has no GI symptoms, I believe this is likely due to hydronephrosis. I discussed at length following up with her primary care provider, as she may need to go back to her urologist. She was given take-home packs of Zofran as well as Percocet that she is staying in [facility] before going home to [place] tomorrow. I gave her prescriptions of both Percocet and Zofran as well. She states she has enough tamulosin to last her. I encouraged her to follow up with primary care provider in the next few days. I encouraged to monitor for signs of symptoms of infection including dysuria, fever, etc. Patient has no questions or concerns upon discharge. <Karen Cuevas, DO - Last Filed: 02/13/19 04:32> Lab Data Lab Results 02/12/19 02/12/19 02/12/19 Range/Units 17:35 19:55 19:55 WBC 11.1 H (4.5-11.0) X10^3/uL RBC 5.27 H (4.0-5.2) X10^6/uL Hgb 15.7 (12.0-16.0) g/dL Hct 47.0 H (36-46) % MCV 89.2 (80-100) fL MCH 29.9 (26-34) PG MCHC 33.5 (30-36) % RDW 14.0 (11.6-14.8) % Plt Count 221 (150-400) X10^3/uL Neut % (Auto) 82.3 H (50-75) % Lymph % (Auto) 11.3 L (25-40) % [place] % (Auto) 5.7 (3-14) % Eos % (Auto) 0.2 L (2-4) % Baso % (Auto) 0.5 (0-2) % Neut # (Auto) 9100 H (2083-0191) /uL Lymph # (Auto) 1300 (0088-1875) /uL [place] # (Auto) 600 (0-900) /uL Eos # (Auto) 0 (0-450) /uL Baso # (Auto) 100 (0-100) /uL Sodium 136 L (137-145) mmol/L Potassium 3.7 (3.4-5.1) mmol/L Chloride 100 (98-107) mmol/L Carbon Dioxide 27 (22-32) mmol/L BUN 18 H (7-17) mg/dL Creatinine 0.80 (0.52-1.04) mg/dL Estimated GFR > 60.0 (>60) mL/min BUN/Creatinine Ratio 22.5 H (6-22) Glucose 104 (80-110) mg/dL Calcium 9.5 (8.4-10.2) mg/dL Total Bilirubin 1.0 (0.2-1.3) mg/dL AST 31 (14-36) IU/L ALT 34 (9-52) IU/L Alkaline Phosphatase 94 (38-126) U/L Total Protein 6.9 (6.3-8.2) g/dL Albumin 4.1 (3.5-5.0) g/dL Globulin 2.8 (1.7-4.1) g/dL Albumin/Globulin Ratio 1.5 (1.0-2.8) Amylase (30-110) U/L Lipase (23-300) U/L Urine RBC 0-1/hpf (0-5/HPF) Urine WBC 0-1/hpf (0-5/HPF) Ur Squamous Epith Cells 0-1 /hpf Urine Bacteria Few (2-10) H (None) Ur Culture Indicated? Cult not indicated 02/12/19 Range/Units 19:55 WBC (4.5-11.0) X10^3/uL RBC (4.0-5.2) X10^6/uL Hgb (12.0-16.0) g/dL Hct (36-46) % MCV (80-100) fL MCH (26-34) PG MCHC (30-36) % RDW (11.6-14.8) % Plt Count (150-400) X10^3/uL Neut % (Auto) (50-75) % Lymph % (Auto) (25-40) % [place] % (Auto) (3-14) % Eos % (Auto) (2-4) % Baso % (Auto) (0-2) % Neut # (Auto) (1842-6582) /uL Lymph # (Auto) (2950-6909) /uL [place] # (Auto) (0-900) /uL Eos # (Auto) (0-450) /uL Baso # (Auto) (0-100) /uL Sodium (137-145) mmol/L Potassium (3.4-5.1) mmol/L Chloride (98-107) mmol/L Carbon Dioxide (22-32) mmol/L BUN (7-17) mg/dL Creatinine (0.52-1.04) mg/dL Estimated GFR (>60) mL/min BUN/Creatinine Ratio (6-22) Glucose (80-110) mg/dL Calcium (8.4-10.2) mg/dL Total Bilirubin (0.2-1.3) mg/dL AST (14-36) IU/L ALT (9-52) IU/L Alkaline Phosphatase (38-126) U/L Total Protein (6.3-8.2) g/dL Albumin (3.5-5.0) g/dL Globulin (1.7-4.1) g/dL Albumin/Globulin Ratio (1.0-2.8) Amylase 49 (30-110) U/L Lipase 61 (23-300) U/L Urine RBC (0-5/HPF) Urine WBC (0-5/HPF) Ur Squamous Epith Cells Urine Bacteria (None) Ur Culture Indicated? Urine Dip Bedside Urine Glucose Negative Bedside Urine Bilirubin - Negative Bedside Urine Ketone - Negative Urine Specific [place] 1.030 Bedside Urine Occult Blood +/- Bedside Urine pH 5.5 Bedside Urine Protein - Negative Bedside Urine Urobilinogen - Negative Bedside Urine Nitrite - Negative Bedside Urine Leukocytes - Negative Esterase Discharge Plan Departure Patient Disposition: Home Clinical Impression: Kidney stone on left side Discharge Date/Time: 02/12/19 22:24 Interventions: ED Discharge Assessment Last Done: 02/12/19 22:24 Instructions: DI for Kidney Stones Activity Restrictions/Additional Instructions: Unfortunately you have a kidney stone, but luckily your urine does not have any signs of infection. Please put fluids and strain your urine. I have given a take-home packs of pain medication Zofran medication. I have also given him prescriptions of both. Please follow up with primary care provider in the next few days as he may need to go back to your urologist if you do not pass the stone. Please take tamulosin for once a day for a week. Come back to the emergency department if he need to. Please monitor for signs of infection including fever, burning, etc. Prescriptions: New oxycodone-acetaminophen [Percocet] 5-325 mg tablet 1 tab PO Q4-6H PRN (Reason: pain) Qty: 20 RF: 0 ondansetron 4 mg tablet,disintegrating 4 mg PO TID-QID PRN (Reason: nausea and vomiting) Qty: 30 RF: 0 No Action naproxen sodium [Aleve] 220 MG tablet 220 mg PO Q DAY PRN Qty: 0 RF: 0 tamsulosin [Flomax] 0.4 MG capsule,extended release 24hr 0.4 mg PO QDAY PRNQty: 30 RF: 1 hydrocodone-acetaminophen [Pound] 5 MG/325 MG tablet PO Q4HP PRNQty: 20 RF: 0 mupirocin 2 % ointment 1 dev Topical SEE INSTRUCTIONS Qty: 22 RF: 0 colchicine 0.6 MG tablet 0.6 mg PO QDAY Qty: 100 RF: 0 diclofenac sodium [Voltaren] 1 % gel 2 % Topical BID Qty: 100 RF: 1 atorvastatin [Lipitor] 20 MG tablet 20 mg PO HS Qty: 90 RF: 3 benazepril-hydrochlorothiazide 20 MG/25 MG tablet 1 tab PO QDAY Qty: 90 RF: 3 acyclovir [Zovirax] 400 MG tablet 400 mg PO TID Qty: 15 RF: 3 allopurinol 300 MG tablet 300 mg PO QDAY Qty: 90 RF: 3 amoxicillin 500 MG tablet 500 mg PO BIDCC Qty: 40 RF: 0 cyclobenzaprine 10 MG tablet 10 mg PO PRN Qty: 30 RF: 1 oxycodone-acetaminophen [Percocet] 5-325 mg tablet 1 tab PO Q4-6H PRN (Reason: pain) Qty: 20 RF: 0 ondansetron 4 mg tablet,disintegrating 4 mg PO Q6-8H PRN (Reason: nausea and vomiting) Qty: 10 RF: 0 <Karen Cuevas, - Last Filed: 02/13/19 04:32> Cosign ED Attending Emeka Attestation: I was immediately available in the department for consultation. Documentation has been reviewed. I agree with assessment and plan.
[2019-02-12] MEDS: SODIUM CHLORIDE 0.9% 1,000 ML 1000 ML IV (19:56)
[2019-02-12] MEDS: ONDANSETRON 4 MG/2 ML INJ IV (19:56)
[2019-02-12] MEDS: KETOROLAC 60 MG/2 ML VIAL 15 MG IV (19:57)
[2019-02-12] MEDS: HYDROMORPHONE 1 MG INJ 0.5 MG IV (19:57)
[2019-02-12 20:13] LABS: Add Manual Diff / Slide Review NO; Basophils Absolute Auto 100 /uL (0-100); Basophils Percent Auto 0.5 % (0-2); Eosinophils Absolute Auto 0 /uL (0-450); Eosinophils Percent Auto 0.2 % (2-4); Hemoglobin 15.7 g/dL (12.0-16.0); Lymphocytes Absolute Auto 1300 /uL (1100-4500); Lymphocytes Percent Auto 11.3 % (25-40); Mean Corpuscular HGB Conc 33.5 % (30-36); Mean Corpuscular Hemoglobin 29.9 PG (26-34); Mean Corpuscular Volume 89.2 fL (80-100); Monocytes Absolute Auto 600 /uL (0-900); Monocytes Percent Auto 5.7 % (3-14); Neutrophils Absolute Auto 9100 /uL (1500-7000); Neutrophils Percent Auto 82.3 % (50-75); Platelet Count 221 X10^3/uL (150-400); Red Blood Cell Count 5.27 X10^6/uL (4.0-5.2); White Blood Cell Count 11.1 X10^3/uL (4.5-11.0)
[2019-02-12 20:19] LABS: Amylase 49 U/L (30-110); Lipase 61 U/L (23-300)
[2019-02-12 20:21] LABS: Alanine Aminotransferase 34 IU/L (9-52); Albumin 4.1 g/dL (3.5-5.0); Albumin Globulin Ratio 1.5 (1.0-2.8); Alkaline Phosphatase 94 U/L (38-126); Aspartate Aminotransferase 31 IU/L (14-36); BUN Creatinine Ratio 22.5 (6-22); Blood Urea Nitrogen 18 mg/dL (7-17); Calcium 9.5 mg/dL (8.4-10.2); Carbon Dioxide 27 mmol/L (22-32); Chloride 100 mmol/L (98-107); Estimated Glomerular Filt Rate > 60.0 mL/min (>60); Globulin 2.8 g/dL (1.7-4.1); Glucose 104 mg/dL (80-110); HEMOLYSIS 27 (0-50); Potassium 3.7 mmol/L (3.4-5.1); Sodium 136 mmol/L (137-145); Total Protein 6.9 g/dL (6.3-8.2)
--- NOTE | 2019-02-12 20:21 | DI.CT.S_ITS ---
PROCEDURE: CT KIDNEY URETER BLADDER (KUB) INDICATIONS: flank pain, hx stone TECHNIQUE: Noncontrast 5 mm thick sections acquired from the diaphragms to the symphysis. 5 mm thick coronal and sagittal reformats were then performed. For radiation dose reduction, the following was used: automated exposure control, adjustment of mA and/or kV according to patient size. COMPARISON: [facility], CT, CT ABDOMEN PELVIS W CON, 07/23/2018, 15:14. FINDINGS: Image quality: Excellent. Lung bases: Lung bases are clear. Heart size is normal. Urinary system: Both kidneys are normal in size. Right renal cyst is stable. There is a 5 mm stone in the distal left ureter causing moderate left-sided hydronephrosis. A cluster of stones noted in the inferior pole of the right kidney. Small 1 mm nonobstructing stones noted in the inferior pole of the left kidney range in size from 4 mm-8 mm.. There is left perirenal stranding which could be due to hydronephrosis versus superimpose urinary tract infection. Bladder wall thickness is normal; no calcified bladder stones. Other solid organs: Liver is normal in size. Gallbladder is within normal limits. Pancreas is normal in contours. Spleen is normal in size. No adrenal nodules. Peritoneum and bowel: Unenhanced bowel loops demonstrate normal wall thickness and caliber. Colonic diverticuli without evidence of diverticulitis. The appendix is not visualized, however no free fluid or inflammatory changes noted adjacent to the cecum. No free fluid or air. Nodes and vessels: No retroperitoneal or mesenteric adenopathy by size criteria. Aorta and inferior vena cava are normal in caliber. Abdominal wall: Large periumbilical ventral hernia which contain unremarkable appearing loops of bowel is stable compared to prior exam. Pelvis: No free pelvic fluid. No inguinal hernias or adenopathy. Bones: No suspicious bony lesions. No vertebral body compression fractures. Spine degenerative disease and facet arthropathy noted. IMPRESSION: 1. 5 mm distal left ureteral stone causing moderate left-sided hydronephrosis. 2. Bilateral nonobstructing renal cortical stones. 3. Left renal perinephric stranding which could be related to hydronephrosis, or superimpose pyelonephrosis cannot be differentiated by CT imaging alone. Recommend correlation with urinalysis data. 3. Large periumbilical ventral hernia which contains unremarkable appearing loops of bowel stable compared to prior examination. Dictated by: Shahida Banks MD, PhD on 02/12/2019 at 20:50 Approved by: Shahida Banks MD, PhD on 02/12/2019 at 20:56
[2019-02-12 20:44] LABS: Bacteria Urine Few (2-10); Culture Indicated Urine Cult Not Indicated; RBC Urine 0-1/HPF (0-5/HPF); Squamous Epithelial Cell Urine 0-1 /HPF; WBC Urine 0-1/HPF (0-5/HPF)
[2019-02-12 21:51] VITALS: BP 138/86; PULSE 94; RESP 18; O2SAT 94
[2019-02-12] MEDS: OXYCODONE/APAP 5/325 PREPACK 1 BOTTLE MISC (22:14)
[2019-02-12] MEDS: ONDANSETRON 4 MG ODT PREPACK 1 BOTTLE MISC (22:14)
[2019-02-12 22:24] VITALS: BP 128/86; PULSE 101; RESP 18; O2SAT 95
== END 2019-02-12 22:24 | disposition home or self-care (01) ==
PROVIDERS: Emergency Provider Nurse Practitioner Family
DX: N20.0 Calculus of kidney (principal)
CPT/HCPCS: 36591; 74176; 80053; 81003; 81015; 82150; 83690; 85025; 96361; 96374; 96375; 99283; 99284; J1170; J1885; J2405

== ENCOUNTER → 2019-07-21 16:22 | Outpatient (ROUT) | payer OTHER, SELFPAY ==
[2019-07-21 16:59] LABS: Add Manual Diff / Slide Review NO; Basophils Absolute Auto 0 /uL (0-100); Basophils Percent Auto 0.4 % (0-2); Eosinophils Absolute Auto 300 /uL (0-450); Hematocrit 46.4 % (36-46); Lymphocytes Absolute Auto 2800 /uL (1100-4500); Lymphocytes Percent Auto 32.6 % (25-40); Mean Corpuscular HGB Conc 34.6 % (30-36); Mean Corpuscular Hemoglobin 31.4 PG (26-34); Mean Corpuscular Volume 90.8 fL (80-100); Monocytes Absolute Auto 700 /uL (0-900); Monocytes Percent Auto 7.7 % (3-14); Neutrophils Absolute Auto 4800 /uL (1500-7000); Neutrophils Percent Auto 56.3 % (50-75); Platelet Count 230 X10^3/uL (150-400); Red Blood Cell Count 5.11 X10^6/uL (4.0-5.2); Red Cell Distribution Width 13.9 % (11.6-14.8); White Blood Cell Count 8.5 X10^3/uL (4.5-11.0)
[2019-07-21 17:05] LABS: Alanine Aminotransferase 23 IU/L (9-52); Albumin 4.2 g/dL (3.5-5.0); Albumin Globulin Ratio 1.4 (1.0-2.8); Alkaline Phosphatase 103 U/L (38-126); Aspartate Aminotransferase 31 IU/L (14-36); Bilirubin Total 1.6 mg/dL (0.2-1.3); Blood Urea Nitrogen 21 mg/dL (7-17); Calcium 10.4 mg/dL (8.4-10.2); Carbon Dioxide 32 mmol/L (22-32); Chloride 96 mmol/L (98-107); Cholesterol 198 mg/dL (140-199); Estimated Glomerular Filt Rate > 60.0 mL/min (>60); Globulin 2.9 g/dL (1.7-4.1); Glucose 100 mg/dL (80-110); HDL Cholesterol 66 mg/dL (40-60); HEMOLYSIS 23 (0-50); LDL Cholesterol Calculated 89 mg/dL (<100); Sodium 137 mmol/L (137-145); Total Protein 7.1 g/dL (6.3-8.2); Triglycerides 213 mg/dL (35-150); Uric Acid 5.8 mg/dL (2.5-6.2)
[2019-07-21 17:40] LABS: Hemoglobin A1C% w Est Avg Glu 5.4 % (4.0-6.0)
== END ==
PROVIDERS: Visit Provider Nurse Practitioner
DX: E78.2 Mixed hyperlipidemia (principal); I10 Essential (primary) hypertension; E66.01 Morbid (severe) obesity due to excess calories; Z87.442 Personal history of urinary calculi
CPT/HCPCS: 80053; 80061; 83036; 84550; 85025

== ENCOUNTER 2020-07-11 12:12 | Emergency (ER) | payer MEDICARE, SELFPAY ==
[2020-07-11] VITALS (11 sets, daily range): BP systolic 119–146; BP diastolic 63–82; PULSE 96–102; RESP 16–22; O2SAT 91–96; BMI 38.2
--- NOTE | 2020-07-11 12:28 | DI.CT.S_ITS ---
PROCEDURE: CT KIDNEY URETER BLADDER (KUB) INDICATIONS: R side pain, hx multiple left kidney stones TECHNIQUE: Noncontrast 5 mm thick sections acquired from the diaphragms to the symphysis. 5 mm thick coronal and sagittal reformats were then performed. For radiation dose reduction, the following was used: automated exposure control, adjustment of mA and/or kV according to patient size. COMPARISON: [facility], CT, CT KIDNEY URETER BLADDER (KUB), 02/12/2019, 20:28. FINDINGS: Image quality: Excellent. Lung bases: Right lung base is clear. Mild elevation of left hemidiaphragm is again seen with left basilar atelectasis. Heart size is normal. Urinary system: Right kidney is asymmetrically enlarged with moderate right-sided hydronephrosis and perinephric fat stranding. Proximal right hydroureter is also noted. 2 stones are noted in proximal right ureter just distal to right UPJ and measures up to 7 millimeters in size. Bilateral nonobstructing renal calculi are also seen including a 5 millimeter stone seen in dependent portion of right renal pelvis. No left-sided hydronephrosis or perinephric fat stranding. Rest of bilateral ureters are normal in size and appearance. Bladder wall thickness is normal; no calcified bladder stones. Other solid organs: Liver is normal in size. Gallbladder is within normal limits. Pancreas is normal in contours. Spleen is normal in size. No adrenal nodules. Peritoneum and bowel: Unenhanced bowel loops demonstrate normal wall thickness and caliber. No free fluid or air. Nodes and vessels: No retroperitoneal or mesenteric adenopathy by size criteria. Aorta and inferior vena cava are normal in caliber. Abdominal wall: Large ventral periumbilical hernia is again seen containing multiple segment of bowel loops without evidence of incarceration. Pelvis: No free pelvic fluid. No inguinal hernias or adenopathy. Bones: No suspicious bony lesions. No vertebral body compression fractures. Degenerative disc disease throughout lower thoracic and lumbar spine is seen. IMPRESSION: 1. Right proximal ureteral stones measures up to 7 millimeters in size causing moderate right-sided hydronephrosis and proximal hydroureter. 2. Bilateral nonobstructing renal calculi. No left-sided hydronephrosis. Normal appearing left ureter and urinary bladder. 3. Large ventral periumbilical hernia unchanged from prior study and contains bowel loops. No evidence of incarceration. No bowel obstruction. No free fluid or free air. Dictated by: Edward Zarate M.D. on 07/11/2020 at 12:45 Approved by: Edward Zarate M.D. on 07/11/2020 at 13:00
[2020-07-11] MEDS: ONDANSETRON 4 MG/2 ML INJ IV ×2 (12:37→16:34)
[2020-07-11] MEDS: KETOROLAC 60 MG/2 ML VIAL 15 MG IV (12:38)
[2020-07-11 12:42] LABS: Add Manual Diff / Slide Review NO; Basophils Absolute Auto 100 /uL (0-100); Basophils Percent Auto 0.6 % (0-2); Eosinophils Absolute Auto 0 /uL (0-450); Eosinophils Percent Auto 0.1 % (2-4); Hemoglobin 16.3 g/dL (12.0-16.0); Lymphocytes Absolute Auto 1400 /uL (1100-4500); Lymphocytes Percent Auto 11.4 % (25-40); Mean Corpuscular Hemoglobin 30.8 PG (26-34); Mean Corpuscular Volume 90.7 fL (80-100); Monocytes Absolute Auto 600 /uL (0-900); Monocytes Percent Auto 4.9 % (3-14); Neutrophils Absolute Auto 10100 /uL (1500-7000); Platelet Count 224 X10^3/uL (150-400); Red Blood Cell Count 5.29 X10^6/uL (4.0-5.2); Red Cell Distribution Width 14.1 % (11.6-14.8); White Blood Cell Count 12.2 X10^3/uL (4.5-11.0)
[2020-07-11 12:52] LABS: Alanine Aminotransferase 35 IU/L (<35); Albumin 4.4 g/dL (3.5-5.0); Albumin Globulin Ratio 1.4 (1.0-2.8); Alkaline Phosphatase 114 U/L (38-126); Aspartate Aminotransferase 36 IU/L (14-36); BUN Creatinine Ratio 22.1 (6-22); Bilirubin Total 1.3 mg/dL (0.2-1.3); Blood Urea Nitrogen 17 mg/dL (7-17); Calcium 10.2 mg/dL (8.4-10.2); Carbon Dioxide 29 mmol/L (22-32); Chloride 97 mmol/L (98-107); Estimated Glomerular Filt Rate > 60.0 mL/min (>60); Globulin 3.2 g/dL (1.7-4.1); Glucose 142 mg/dL (80-110); HEMOLYSIS < 15 (0-50); Lipase 62 U/L (23-300); Potassium 3.9 mmol/L (3.4-5.1); Sodium 135 mmol/L (137-145); Total Protein 7.6 g/dL (6.3-8.2)
--- NOTE | 2020-07-11 13:03 | ED_ITS ---
HPI - Female Genitourinary <CRISTINA Rodriguez - Last Filed: 07/11/20 23:13> General Chief complaint: Urogenital-Female Stated complaint: thinks has a kidney stone, vomiting Time Seen by Provider: 07/11/20 12:15 Source: patient Mode of arrival: Wheelchair Limitations: no limitations History of Present Illness HPI Narrative: This is a 64 year female, smoker, has several history of left- sided kidney stones and require lithotripsies and spontaneous passing in the past, presents to ED with family member with chief complain of severe right side pain and vomiting since 2:00 a.m.. Reports pain is very sharp and constant. Patient had taken hydrocodone twice before coming into ED at 4:00 a.m. and 9:30 a.m. along Zofran for nausea with very limited pain control. Patient reports no history of right-sided kidney stone in the past. Denies fever, urinary symptoms including hematuria, dysuria, frequency, urgency. Patient reports occasional chills with pain and vomiting. Patient has urologist at [facility] in [place]. She has primary care provider is JUDIE Anderson in [place]. Related Data Home Medications Medication Instructions Recorded Confirmed naproxen sodium [Aleve] 220 mg PO Q DAY PRN #0 04/29/11 Previous Rx's Medication Instructions Recorded tamsulosin [Flomax] 0.4 mg PO QDAY PRN #30 cap 07/29/13 hydrocodone-acetaminophen [[place]] 0 PO Q4HP PRN #20 tab 10/31/16 mupirocin 1 dev TOPICAL SEE INSTRUCTIONS #22 11/06/16 gm colchicine 0.6 mg PO QDAY #100 tab 12/25/16 diclofenac sodium [Voltaren] 2 % TOPICAL BID #100 gm 01/09/17 acyclovir [Zovirax] 400 mg PO TID #15 tab 02/12/17 allopurinol 300 mg PO QDAY #90 tab 02/12/17 amoxicillin 500 mg PO BIDCC #40 tab 02/12/17 atorvastatin [Lipitor] 20 mg PO HS #90 tab 02/12/17 benazepril-hydrochlorothiazide 1 tab PO QDAY #90 tab 02/12/17 cyclobenzaprine 10 mg PO PRN #30 tab 05/19/17 ondansetron 4 mg PO Q6-8H PRN #10 tab 07/23/18 ondansetron 4 mg PO TID-QID PRN #30 tab 02/12/19 oxycodone-acetaminophen [Percocet] 1 tab PO Q4-6H PRN #20 tab 02/12/19 sulfamethoxazole-trimethoprim 1 tab PO BID 7 Days #14 tab 07/11/20 [Bactrim DS] Allergies Allergy/AdvReac Type Severity Reaction Status Date / Time ciprofloxacin [From Cipro] Allergy Muscle Pain Verified 02/12/19 18:22 codeine Allergy Verified 02/12/19 18:22 Review of Systems [facility] Last Filed: 07/11/20 23:13> Review of Systems Narrative: General: Denies fever, (+) occasional chills, fatigue, malaise, sweats. HEENT: Denies sinus pain, ear pain, sore throat, difficulty swallowing, dizziness. Respiratory: Denies dyspnea, cough, wheezing, hemoptysis, sputum. Cardiovascular: Denies chest pain, palpitations, orthopnea, edema. Gastrointestinal: See HPI : See HPI Musculoskeletal: HPI Skin: Denies rash, skin lesions, or other. Neurologic: Denies weakness, headache, numbness, change in speech, confusion, seizures, incoordination. Psychiatric: No concerning psychosocial issues. 12-point review of systems is negative except for those stated above. Patient History [facility] - Last Filed: 07/11/20 23:13> Smoking Status: Current every day smoker alcohol intake frequency: 0-2 drinks per day Substance Use Type: marijuana Exam <[facility] Filed: 07/11/20 23:13> Narrative Exam Narrative: GEN: Alert, oriented x 3, well nourished, and in moderate to severe distress from pain. Head: Normal cephalic, atraumatic. No scalp or temporal tenderness, palpable mass or rash. EYES: Pupils are equal, round, and reactive to light and accommodation. Extraocular muscles are intact bilaterally. There is no subconjunctival hemorrhage, exudate and sclera non-icteric. ENT: Hearing grossly intact. Nose without bleeding, purulent discharge or deviation. Airway patent. Neck: Trachea in midline. No JVD, non-tender without lymphadenopathy. No masses or thyroid megaly. Supple, non-tender and no meningeal signs. CARDIAC: Normal regular rate and rhythm without murmurs, gallops, or rubs. No chest wall tenderness. No peripheral edema, cyanosis or pallor. Capillary refill is less than 2 seconds. RESPIRATORY: Lungs are clear to auscultate bilaterally. No cough, wheezes, rales, or rhonchi. No stridor, respiratory distress, increase work of breathi ng, or accessary muscle used. ABD: Abdomen soft, nontender and non-distended. No guarding or rebound tenderness to palpate. Bowel sounds are normal in all 4 quadrants. There is no palpable masses or organomegaly. EXT: Full painless ROM of all extremities with no loss of sensation, strength, effusion or edema. SKIN: Warm, dry, normal color for patient. No erythema, lesions or rash over visible areas. BACK: Nontender without deformity or crepitance. No flank tenderness. NEUROLOGICAL: Alert and oriented to place, time and person. Sensation and motor function intact bilaterally. No facial droops, dysphasia. PSYCHIATRIC: Good judgement and reason, without hallucinations, abnormal affect or abnormal behaviors during the examination. Initial Vital Signs Initial Vital Signs: Vital Signs Pulse Rate 100 H 07/11/20 15:10 Respiratory Rate 22 07/11/20 15:10 Blood Pressure 135/82 07/11/20 15:10 Pulse Oximetry 96 07/11/20 15:10 <George Avila MD - Last Filed: 07/17/20 07:27> Initial Vital Signs Initial Vital Signs: Vital Signs Pulse Rate 100 H 07/11/20 15:10 Respiratory Rate 22 07/11/20 15:10 Blood Pressure 135/82 07/11/20 15:10 Pulse Oximetry 96 07/11/20 15:10 Scores <[facility] - Last Filed: 07/11/20 23:13> GCS [place] coma scale eye opening: Spontaneous [place] coma scale verbal response: Orientated [place] coma scale motor response: Obey commands [place] coma scale total score: 15 qSOFA Altered Mental Status (GCS <15): No Respiratory rate greater than/equal to 22: No Systolic blood pressure less than or equal to 100: No qSOFA Total: 0 0-1 Not High Risk 1-3 High risk Course <Galo CRISTINA Chan - Last Filed: 07/11/20 23:13> Orders Ordered: Discontinued Medications Al Hydrox/Mg Hydrox/Simethicone (Maalox Plus) 30 ml PO NOW ONE Stop: 07/11/20 15:00 Last Admin: 07/11/20 15:04 Dose: 30 ml Documented by: HUMBERTO Sodium Chloride (Normal Saline 0.9%) 500 mls @ 1,000 mls/hr IV BOLUS ONE Stop: 07/11/20 14:10 Last Infusion: 07/11/20 16:22 Dose: 0 mls/hr Documented by: Admin: 07/11/20 14:35 Dose: 1,000 mls/hr Documented by: HUMBERTO Sodium Chloride (Normal Saline 0.9%) 250 mls @ 500 mls/hr IV NOW ONE Stop: 07/11/20 18:16 Last Infusion: 07/11/20 20:00 Dose: 0 mls/hr Documented by: Admin: 07/11/20 17:56 Dose: 500 mls/hr Documented by: BECKY Ketorolac Tromethamine (Toradol) 15 mg IV NOW ONE Stop: 07/11/20 12:29 Last Admin: 07/11/20 12:38 Dose: 15 mg Documented by: TOMMY Metoclopramide HCl (Reglan) 10 mg IV NOW ONE Stop: 07/11/20 17:46 Last Admin: 07/11/20 17:56 Dose: 10 mg Documented by: VISHNUIN Morphine Sulfate (Morphine) 2 mg IV NOW ONE Stop: 07/11/20 15:24 Last Admin: 07/11/20 16:22 Dose: 2 mg Documented by: RMARTIN Morphine Sulfate (Morphine) 2 mg IV NOW ONE Stop: 07/11/20 16:45 Last Admin: 07/11/20 16:53 Dose: 2 mg Documented by: RMJOEIN Ondansetron HCl (Zofran) 4 mg IV NOW ONE Stop: 07/11/20 12:29 Last Admin: 07/11/20 12:37 Dose: 4 mg Documented by: MADIEM Ondansetron HCl (Zofran) 4 mg IV NOW ONE Stop: 07/11/20 16:31 Last Admin: 08/12/20 16:34 Dose: 4 mg Documented by: BECKY Oxycodone/Acetaminophen (Endocet 5/325 Prepack) 1 bottle MISC SEEINSTR ONE Stop: 07/11/20 19:59 Last Admin: 07/11/20 20:00 Dose: 1 bottle Documented by: ESTEPHANIAFARL Trimethoprim/Sulfamethoxazole (Bactrim Ds) 1 tab PO NOW ONE Stop: 07/11/20 16:45 Last Admin: 07/11/20 16:53 Dose: 1 tab Documented by: BECKY Reevaluation(s) Reevaluation #1: pain free after the meds received Time: 14:10 Reevaluation #2: Recurring pain and medicating patient with morphine Time: 15:30 Reevaluation #3: The patient reports recurring nausea after the 2nd dose of Zofran. Medicating with Reglan mixed in IVF Time: 18:00 Additional Reevaluation(s): 1908 Reports nausea improving and feeling better. Will plan to dc. 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 Consultations Consultation #1: Dr. Gallegos consulted via phone call with physical findings, CT and lab tests. Was recommended to follow-up at the clinic within next couple of days for possible surgical procedures if patient is able to tolerate pain. Recommended to treat patient with antibiotic medication for possible UTI/kidney infection. Time: 16:30 Vital Signs Vital signs: Vital Signs - 8 hr 07/11/20 15:10 07/11/20 16:38 07/11/20 16:39 Pulse Rate 100 H 101 H 99 H Respiratory Rate 22 Blood Pressure 135/82 146/70 H Pulse Oximetry 96 95 95 07/11/20 16:42 07/11/20 17:28 07/11/20 17:31 Pulse Rate 102 H 99 H 96 H Respiratory Rate 18 16 Blood Pressure 146/70 H Pulse Oximetry 95 94 94 07/11/20 17:48 07/11/20 18:50 07/11/20 19:53 Pulse Rate 99 H 96 H 98 H Respiratory Rate Blood Pressure 143/71 H 135/63 Pulse Oximetry 93 95 92 07/11/20 19:54 07/11/20 20:00 Pulse Rate 97 H 96 H Respiratory Rate Blood Pressure 119/70 Pulse Oximetry 92 91 <George Avila MD - Last Filed: 07/17/20 07:27> Orders Ordered: Discontinued Medications Al Hydrox/Mg Hydrox/Simethicone (Maalox Plus) 30 ml PO NOW ONE Stop: 07/11/20 15:00 Last Admin: 07/11/20 15:04 Dose: 30 ml Documented by: HUMBERTO Sodium Chloride (Normal Saline 0.9%) 500 mls @ 1,000 mls/hr IV BOLUS ONE Stop: 07/11/20 14:10 Last Infusion: 07/11/20 16:22 Dose: 0 mls/hr Documented by: Admin: 07/11/20 14:35 Dose: 1,000 mls/hr Documented by: HUMBERTO Sodium Chloride (Normal Saline 0.9%) 250 mls @ 500 mls/hr IV NOW ONE Stop: 07/11/20 18:16 Last Infusion: 07/11/20 20:00 Dose: 0 mls/hr Documented by: Admin: 07/11/20 17:56 Dose: 500 mls/hr Documented by: BECKY Ketorolac Tromethamine (Toradol) 15 mg IV NOW ONE Stop: 07/11/20 12:29 Last Admin: 07/11/20 12:38 Dose: 15 mg Documented by: TOMMY Metoclopramide HCl (Reglan) 10 mg IV NOW ONE Stop: 07/11/20 17:46 Last Admin: 07/11/20 17:56 Dose: 10 mg Documented by: VISHNUIN Morphine Sulfate (Morphine) 2 mg IV NOW ONE Stop: 07/11/20 15:24 Last Admin: 07/11/20 16:22 Dose: 2 mg Documented by: CONCETTAARTIN Morphine Sulfate (Morphine) 2 mg IV NOW ONE Stop: 07/11/20 16:45 Last Admin: 07/11/20 16:53 Dose: 2 mg Documented by: VISHNUIN Ondansetron HCl (Zofran) 4 mg IV NOW ONE Stop: 07/11/20 12:29 Last Admin: 07/11/20 12:37 Dose: 4 mg Documented by: MADIEM Ondansetron HCl (Zofran) 4 mg IV NOW ONE Stop: 07/11/20 16:31 Last Admin: 07/11/20 16:34 Dose: 4 mg Documented by: RMARTIN Oxycodone/Acetaminophen (Endocet 5/325 Prepack) 1 bottle MISC SEEINSTR ONE Stop: 07/11/20 19:59 Last Admin: 07/11/20 20:00 Dose: 1 bottle Documented by: MMCFARL Trimethoprim/Sulfamethoxazole (Bactrim Ds) 1 tab PO NOW ONE Stop: 07/11/20 16:45 Last Admin: 07/11/20 16:53 Dose: 1 tab Documented by: BECKY Vital Signs Vital signs: Vital Signs - 8 hr 07/11/20 15:10 07/11/20 16:38 07/11/20 16:39 Pulse Rate 100 H 101 H 99 H Respiratory Rate 22 Blood Pressure 135/82 146/70 H Pulse Oximetry 96 95 95 07/11/20 16:42 07/11/20 17:28 07/11/20 17:31 Pulse Rate 102 H 99 H 96 H Respiratory Rate 18 16 Blood Pressure 146/70 H Pulse Oximetry 95 94 94 07/11/20 17:48 07/11/20 18:50 07/11/20 19:53 Pulse Rate 99 H 96 H 98 H Respiratory Rate Blood Pressure 143/71 H 135/63 Pulse Oximetry 93 95 92 07/11/20 19:54 07/11/20 20:00 Pulse Rate 97 H 96 H Respiratory Rate Blood Pressure 119/70 Pulse Oximetry 92 91 MDM - Female Genitourinary <CRISTINA Rodriguez - Last Filed: 07/11/20 23:13> Differential Diagnosis Differential diagnosis: Likely urinary tract infection and other (Kidney stone, kidney infection, decreased renal function) Medical Records Attestation: I reviewed the patient's medical records. Lab Data Attestation: I reviewed the patient's lab results. Result diagrams: 07/11/20 12:30 07/11/20 12:30 Labs: Lab Results 07/11/20 07/11/20 07/11/20 Range/Units 12:30 12:30 14:08 WBC 12.2 H (4.5-11.0) X10^3/uL RBC 5.29 H (4.0-5.2) X10^6/uL Hgb 16.3 H (12.0-16.0) g/dL Hct 48.0 H (36-46) % MCV 90.7 (80-100) fL MCH 30.8 (26-34) PG MCHC 34.0 (30-36) % RDW 14.1 (11.6-14.8) % Plt Count 224 (150-400) X10^3/uL Neut % (Auto) 83.0 H (50-75) % Lymph % (Auto) 11.4 L (25-40) % [place] % (Auto) 4.9 (3-14) % Eos % (Auto) 0.1 L (2-4) % Baso % (Auto) 0.6 (0-2) % Neut # (Auto) 05880 H (4495-1747) /uL Lymph # (Auto) 1400 (0107-6713) /uL [place] # (Auto) 600 (0-900) /uL Eos # (Auto) 0 (0-450) /uL Baso # (Auto) 100 (0-100) /uL Sodium 135 L (137-145) mmol/L Potassium 3.9 (3.4-5.1) mmol/L Chloride 97 L (98-107) mmol/L Carbon Dioxide 29 (22-32) mmol/L BUN 17 (7-17) mg/dL Creatinine 0.77 (0.52-1.04) mg/dL Estimated GFR > 60.0 (>60) mL/min BUN/Creatinine Ratio 22.1 H (6-22) Glucose 142 H (80-110) mg/dL Calcium 10.2 (8.4-10.2) mg/dL Total Bilirubin 1.3 (0.2-1.3) mg/dL AST 36 (14-36) IU/L ALT 35 H (<35) IU/L Alkaline Phosphatase 114 (38-126) U/L Total Protein 7.6 (6.3-8.2) g/dL Albumin 4.4 (3.5-5.0) g/dL Globulin 3.2 (1.7-4.1) g/dL Albumin/Globulin Ratio 1.4 (1.0-2.8) Lipase 62 (23-300) U/L Urine Color Brown Urine Appearance Cloudy Urine pH 5.5 (4.5-8.0) Ur Specific [place] 1.025 (1.000-1.035) Urine Protein 1+ H (Negative) Urine Glucose (UA) Negative (Negative) g/dL Urine Ketones Trace H (NEGATIVE) Urine Occult Blood 3+ H (Negative) Urine Nitrate Negative (Negative) Urine Bilirubin Negative (NEGATIVE) Urine Urobilinogen 0.2 (0.2) E.U./dL Ur Leukocyte Esterase Trace H (NEGATIVE) Urine RBC >100/hpf H (0-5/HPF) Urine WBC 5-10/hpf H (0-5/HPF) Ur Squamous Epith Cells 1-5 /hpf (0-5/HPF) Urine Bacteria Many (>30) H (None) Urine Mucus 2+ H (Negative) Ur Culture Indicated? Specimen cultured Imaging Data CT-KUB: Radiologist's Impression: [address] [address] [address] Scan Report Signed Patient: Shayy Arango RMR#: [id number] : 3Acct:[id number] Age/Sex: 64 / FDate of Service: 07/11/20 Loc: ED Accession Number: [id number] Procedure: CT kidney ureter bladder (KUB) Ordering Provider: Galo Chan PROCEDURE: CT KIDNEY URETER BLADDER (KUB) INDICATIONS: R side pain, hx multiple left kidney stones TECHNIQUE: Noncontrast 5 mm thick sections acquired from the diaphragms to the symphysis. 5 mm thick coronal and sagittal reformats were then performed. For radiation dose reduction, the following was used: automated exposure control, adjustment of mA and/or kV according to patient size. COMPARISON: [facility], CT, CT KIDNEY URETER BLADDER (KUB), 02/12/2019, 20:28. FINDINGS: Image quality: Excellent. Lung bases: Right lung base is clear. Mild elevation of left hemidiaphragm is again seen with left basilar atelectasis. Heart size is normal. Urinary system: Right kidney is asymmetrically enlarged with moderate right- sided hydronephrosis and perinephric fat stranding. Proximal right hydroureter is also noted. 2 stones are noted in proximal right ureter just distal to right UPJ and measures up to 7 millimeters in size. Bilateral nonobstructing renal calculi are also seen including a 5 millimeter stone seen in dependent portion of right renal pelvis. No left-sided hydronephrosis or perinephric fat stranding. Rest of bilateral ureters are normal in size and appearance. Bladder wall thickness is normal; no calcified bladder stones. Other solid organs: Liver is normal in size. Gallbladder is within normal limits. Pancreas is normal in contours. Spleen is normal in size. No adrenal nodules. Peritoneum and bowel: Unenhanced bowel loops demonstrate normal wall thickness and caliber. No free fluid or air. Nodes and vessels: No retroperitoneal or mesenteric adenopathy by size criteria. Aorta and inferior vena cava are normal in caliber. Abdominal wall: Large ventral periumbilical hernia is again seen containing multiple segment of bowel loops without evidence of incarceration. Pelvis: No free pelvic fluid. No inguinal hernias or adenopathy. Bones: No suspicious bony lesions. No vertebral body compression fractures. Degenerative disc disease throughout lower thoracic and lumbar spine is seen. IMPRESSION: 1. Right proximal ureteral stones measures up to 7 millimeters in size causing moderate right-sided hydronephrosis and proximal hydroureter. 2. Bilateral nonobstructing renal calculi. No left-sided hydronephrosis. Normal appearing left ureter and urinary bladder. 3. Large ventral periumbilical hernia unchanged from prior study and contains bowel loops. No evidence of incarceration. No bowel obstruction. No free fluid or free air. Dictated by: Edward Zarate M.D. on 07/11/2020 at 12:45 Approved by: Edward Zarate M.D. on 07/11/2020 at 13:00 MDM Narrative Medical decision making narrative: This is a 64 year female who has history of multiple left-sided kidney stone with lithotripsies presents to ED with severe right side pain with nausea and vomiting since 2:00 a.m.. Patient denies urinary symptoms or difficulty voiding or fever. Patient had taken her own pain medications at home with minimal pain management. KUB CT test shows 7 mm right proximal ureter stone causing moderate right-sided hydronephrosis, proximal hydroureter, and perinephric fat stranding and bilateral nonobstructing renal calculi including 5 mm stone in dependent portion of right renal pelvis. Left-sided kidney without hydronephrosis. Incidental finding of large ventral umbilical hernia unchanged from prior study without incarceration or obstruction. UA test shows positive for trace leuks, 3+ blood, protein, and ketones but negative for nitrates. Micro urine test indicates WBC of 5-10 and many bacteria and 2+ Mucus and urine cultures pending. CBC shows mild leukocytosis of 12.2 and increased neutrophils. Creatinine was normal as 0.77. Patient reports pain and nausea free after Toradol and Zofran. She had recieved 500 ml of normal saline infusion. During ED course, patient reports recurring pain and she had 2 doses of 2 mg of morphine along additional Zofran for nausea. After a few attempts to contact [facility], was able to consult Dr. Gallegos and it was recommended to follow-up out patiently next couple of days for possible surgical procedure patient is not able to passed stone. Also recommended to treat with antibiotic medication for positive urine test and to culture the urine. These findings were discussed with the patient patient agrees with the treatment plan. However, patient had recurring severe nausea shortly after and it required additional antiemetics regularly to control nausea before discharged to home. Patient was unable to tolerate Bactrim and vomited shortly. Patient advised to take Bactrim when she gets home. Patient discharged to home with Percocet prepack and Bactrim b.i.d. dose for 7 days, Zofran as needed use for nausea. Return precautions were discussed with patient and patient verbalized understanding and agreement with treatment plan. <George Avila MD - Last Filed: 07/17/20 07:27> Lab Data Labs: Lab Results 07/11/20 07/11/20 07/11/20 Range/Units 12:30 12:30 14:08 WBC 12.2 H (4.5-11.0) X10^3/uL RBC 5.29 H (4.0-5.2) X10^6/uL Hgb 16.3 H (12.0-16.0) g/dL Hct 48.0 H (36-46) % MCV 90.7 (80-100) fL MCH 30.8 (26-34) PG MCHC 34.0 (30-36) % RDW 14.1 (11.6-14.8) % Plt Count 224 (150-400) X10^3/uL Neut % (Auto) 83.0 H (50-75) % Lymph % (Auto) 11.4 L (25-40) % [place] % (Auto) 4.9 (3-14) % Eos % (Auto) 0.1 L (2-4) % Baso % (Auto) 0.6 (0-2) % Neut # (Auto) 29888 H (9667-8824) /uL Lymph # (Auto) 1400 (0046-8694) /uL [place] # (Auto) 600 (0-900) /uL Eos # (Auto) 0 (0-450) /uL Baso # (Auto) 100 (0-100) /uL Sodium 135 L (137-145) mmol/L Potassium 3.9 (3.4-5.1) mmol/L Chloride 97 L (98-107) mmol/L Carbon Dioxide 29 (22-32) mmol/L BUN 17 (7-17) mg/dL Creatinine 0.77 (0.52-1.04) mg/dL Estimated GFR > 60.0 (>60) mL/min BUN/Creatinine Ratio 22.1 H (6-22) Glucose 142 H (80-110) mg/dL Calcium 10.2 (8.4-10.2) mg/dL Total Bilirubin 1.3 (0.2-1.3) mg/dL AST 36 (14-36) IU/L ALT 35 H (<35) IU/L Alkaline Phosphatase 114 (38-126) U/L Total Protein 7.6 (6.3-8.2) g/dL Albumin 4.4 (3.5-5.0) g/dL Globulin 3.2 (1.7-4.1) g/dL Albumin/Globulin Ratio 1.4 (1.0-2.8) Lipase 62 (23-300) U/L Urine Color Brown Urine Appearance Cloudy Urine pH 5.5 (4.5-8.0) Ur Specific [place] 1.025 (1.000-1.035) Urine Protein 1+ H (Negative) Urine Glucose (UA) Negative (Negative) g/dL Urine Ketones Trace H (NEGATIVE) Urine Occult Blood 3+ H (Negative) Urine Nitrate Negative (Negative) Urine Bilirubin Negative (NEGATIVE) Urine Urobilinogen 0.2 (0.2) E.U./dL Ur Leukocyte Esterase Trace H (NEGATIVE) Urine RBC >100/hpf H (0-5/HPF) Urine WBC 5-10/hpf H (0-5/HPF) Ur Squamous Epith Cells 1-5 /hpf (0-5/HPF) Urine Bacteria Many (>30) H (None) Urine Mucus 2+ H (Negative) Ur Culture Indicated? Specimen cultured Discharge Plan Departure Patient Disposition: Home Clinical Impression: Right ureteral stone, Renal calculi UTI (urinary tract infection) Qualifiers: Urinary tract infection type: site unspecified Hematuria presence: with hematuria Qualified Code(s): N39.0 - Urinary tract infection, site not specified Discharge Date/Time: 07/11/20 20:02 Instructions: DI for Kidney Stones, DI for Urinary Tract Infection (UTI) Activity Restrictions/Additional Instructions: You have been diagnosed with [stones in ureter and kidney and UTI. Your stone measuring up to 7 mm and kidney stone measuring up to 5 mm. Urine culture is pending. Your medicated with morphine, Toradol, Zofran, and 1st dose antibiotic medication UTI with Bactrim DS in ED.]. What to do: *Take your medications as directed. Please take pain medication that you have at home. Resume antibiotic medication from tomorrow morning twice a day for next 7 days. You can use Zofran/Ondansetron as needed for nausea. Hydrate adequately. This to medication have been transmitted to [facility] in [facility]. *Follow up with your primary care provider in 2-3 days, call for an appointment. Please contact specific urologist in [place] for follow-up tomorrow to schedule. Let them know you were seen in the ED and that we asked you to be seen in follow up. *Return to ED if you have any new, worsening, or concerning symptoms, such as [chest pain, breathing difficulty, unable to tolerate fluids, severe pain, fever, feeling like faint, or any acute concerns]. Prescriptions: New sulfamethoxazole-trimethoprim [Bactrim DS] 800-160 mg tablet 1 tab PO BID 7 Days Qty: 14 RF: 0 No Action naproxen sodium [Aleve] 220 MG tablet 220 mg PO Q DAY PRN Qty: 0 RF: 0 tamsulosin [Flomax] 0.4 MG capsule,extended release 24hr 0.4 mg PO QDAY PRNQty: 30 RF: 1 hydrocodone-acetaminophen [[place]] 5 MG/325 MG tablet 0 PO Q4HP PRNQty: 20 RF: 0 mupirocin 2 % ointment 1 dev Topical SEE INSTRUCTIONS Qty: 22 RF: 0 colchicine 0.6 MG tablet 0.6 mg PO QDAY Qty: 100 RF: 0 diclofenac sodium [Voltaren] 1 % gel 2 % Topical BID Qty: 100 RF: 1 atorvastatin [Lipitor] 20 MG tablet 20 mg PO HS Qty: 90 RF: 3 benazepril-hydrochlorothiazide 20 MG/25 MG tablet 1 tab PO QDAY Qty: 90 RF: 3 acyclovir [Zovirax] 400 MG tablet 400 mg PO TID Qty: 15 RF: 3 allopurinol 300 MG tablet 300 mg PO QDAY Qty: 90 RF: 3 amoxicillin 500 MG tablet 500 mg PO BIDCC Qty: 40 RF: 0 cyclobenzaprine 10 MG tablet 10 mg PO PRN Qty: 30 RF: 1 ondansetron 4 mg tablet,disintegrating 4 mg PO Q6-8H PRN (Reason: nausea and vomiting) Qty: 10 RF: 0 oxycodone-acetaminophen [Percocet] 5-325 mg tablet 1 tab PO Q4-6H PRN (Reason: pain) Qty: 20 RF: 0 ondansetron 4 mg tablet,disintegrating 4 mg PO TID-QID PRN (Reason: nausea and vomiting) Qty: 30 RF: 0 <George Avila MD - Last Filed: 07/17/20 07:27> Cosign ED Attending Cosignature Attestation: I was immediately available in the department for consultation. This documentation has been reviewed and I agree with assessment and plan. Supervised by George Avila MD
[2020-07-11 14:23] LABS: Appearance Urine UA CLOUDY; Bilirubin Urine UA NEGATIVE (NEGATIVE); Color Urine UA BROWN; Glucose Urine UA NEGATIVE (Negative); Ketones Urine UA TRACE (NEGATIVE); Leukocyte Esterase Urine UA TRACE (NEGATIVE); Nitrite Urine UA NEGATIVE (Negative); Occult Blood Urine UA 3+ (Negative); Protein Urine UA 1+ (Negative); Specific Gravity Urine UA 1.025 (1.000-1.035); Urobilinogen Urine UA 0.2 E.U./dL (0.2)
[2020-07-11 14:34] LABS: pH Urine UA 5.5 (4.5-8.0)
[2020-07-11 14:35] LABS: Bacteria Urine Many (>30); Culture Indicated Urine Specimen Cultured; Mucus Urine 2+ (Negative); RBC Urine >100/HPF (0-5/HPF); Squamous Epithelial Cell Urine 1-5 /HPF (0-5/HPF); WBC Urine 5-10/HPF (0-5/HPF)
[2020-07-11] MEDS: SODIUM CHLORIDE 0.9% 500 ML 1000 ML IV (14:35)
[2020-07-11] MEDS: MAG HYDROX/ALUM/SIMETH 30 ML UDC PO (15:04)
[2020-07-11] MEDS: MORPHINE 2 MG/ML INJ IV ×2 (16:22→16:53)
[2020-07-11] MEDS: TRIMETH/SULFA 160/800 (DS) TABLET 1 TAB PO (16:53)
--- NOTE | 2020-07-11 17:04 | PC.NURSE ---
Medicated patient with PO antibiotic. Immediately following administration patient vomited. Provider notified.
--- NOTE | 2020-07-11 17:30 | PC.NURSE ---
Patient reporting continued nausea with no relief. Spoke with provider. Per provider patient has reached maximum IV dosage of Zofran and patient can be discharged and start PO antibiotics this evening. Update patient. Patient refusing to discharge at this time, requests to stay until she feels better. Provider notified.
[2020-07-11] MEDS: METOCLOPRAMIDE 10 MG/2 ML INJ IV (17:56)
[2020-07-11] MEDS: SODIUM CHLORIDE 0.9% 250 ML 500 ML IV (17:56)
[2020-07-11] MEDS: OXYCODONE/APAP 5/325 PREPACK 1 BOTTLE MISC (20:00)
== END 2020-07-11 20:02 | disposition home or self-care (01) ==
PROVIDERS: Emergency Provider Nurse Practitioner Family
DX: N20.1 Calculus of ureter (principal); N20.0 Calculus of kidney; N39.0 Urinary tract infection, site not specified; Z87.442 Personal history of urinary calculi; R11.2 Nausea with vomiting, unspecified
CPT/HCPCS: 36415; 74176; 80053; 81001; 83690; 85025; 87077; 87086; 96361; 96374; 96375; 96376; 99284; J1885; J2270; J2405; J2765

== ENCOUNTER 2021-03-11 20:13 | Observation (INO) | payer MEDICARE, SELFPAY ==
[2021-03-11] VITALS (9 sets, daily range): BP systolic 111–131; BP diastolic 59–73; PULSE 83–102; RESP 10–22; TEMP 36.9–37.3; O2SAT 90–96; BMI 34.6
[2021-03-11 20:48] LABS: INR 1.1 (0.9-1.3); Prothrombin Time 12.3 SECONDS (10.1-12.7)
[2021-03-11 20:50] LABS: Add Manual Diff / Slide Review NO; Basophils Absolute Auto 100 /uL (0-100); Basophils Percent Auto 0.5 % (0-2); Eosinophils Absolute Auto 100 /uL (0-450); Eosinophils Percent Auto 0.7 % (2-4); Hematocrit 50.5 % (36-46); Lymphocytes Absolute Auto 2000 /uL (1100-4500); Lymphocytes Percent Auto 16.7 % (25-40); Mean Corpuscular HGB Conc 33.7 % (30-36); Mean Corpuscular Hemoglobin 30.8 PG (26-34); Mean Corpuscular Volume 91.4 fL (80-100); Monocytes Absolute Auto 800 /uL (0-900); Neutrophils Absolute Auto 9000 /uL (1500-7000); Neutrophils Percent Auto 75.1 % (50-75); Platelet Count 234 X10^3/uL (150-400); Red Blood Cell Count 5.52 X10^6/uL (4.0-5.2); Red Cell Distribution Width 13.6 % (11.6-14.8); White Blood Cell Count 11.9 X10^3/uL (4.5-11.0)
[2021-03-11 20:51] LABS: PTT Partial Thromboplastin Tim 34 SECONDS (26.4-36.2)
[2021-03-11 20:53] LABS: Alanine Aminotransferase 28 IU/L (<35); Albumin 4.3 g/dL (3.5-5.0); Albumin Globulin Ratio 1.3 (1.0-2.8); Alkaline Phosphatase 109 U/L (38-126); Aspartate Aminotransferase 33 IU/L (14-36); BUN Creatinine Ratio 30.4 (6-22); Bilirubin Total 0.8 mg/dL (0.2-1.3); Blood Urea Nitrogen 17 mg/dL (7-17); Carbon Dioxide 30 mmol/L (22-32); Chloride 97 mmol/L (98-107); Estimated Glomerular Filt Rate > 60.0 mL/min (>60); Globulin 3.2 g/dL (1.7-4.1); Glucose 114 mg/dL (80-110); HEMOLYSIS < 15 (0-50); Lipase 80 U/L (23-300); Potassium 3.5 mmol/L (3.4-5.1); Sodium 135 mmol/L (137-145); Total Protein 7.5 g/dL (6.3-8.2)
--- NOTE | 2021-03-11 21:34 | ED_ITS ---
HPI - General Adult General Chief complaint: Abdominal Pain Stated complaint: ABD PAIN HEADACHE Time Seen by Provider: 03/11/21 21:26 Source: patient Mode of arrival: Ambulatory Limitations: no limitations History of Present Illness HPI narrative: Patient is a 65-year-old female who arrives the emergency department today for evaluation of generalized abdominal pain and nausea and a headache. She states that her symptoms started earlier today. She does live on [address]. She was evaluated by the paramedics because the abdominal pain and was instructed that if her symptoms worsen she needed to come to the ER. She states that she went to bed and woke up and felt somewhat better but then her abdominal pain in all of her symptoms returned and it continued to worsen since then. She did have 2 bowel movements this morning that she states were normal for her. She has had abdominal surgeries in the past to include a resection of large bowel. She has a known umbilical hernia. She is not on anticoagulation. Has not tried anything for symptoms prior to arrival Related Data Home Medications Medication Instructions Recorded Confirmed naproxen sodium [Aleve] 220 mg PO Q DAY PRN #0 04/29/11 03/12/21 Previous Rx's Medication Instructions Recorded tamsulosin [Flomax] 0.4 mg PO QDAY PRN #30 cap 07/29/13 colchicine 0.6 mg PO QDAY #100 tab 12/25/16 diclofenac sodium [Voltaren] 2 % TOPICAL BID #100 gm 01/09/17 allopurinol 300 mg PO QDAY #90 tab 02/12/17 atorvastatin [Lipitor] 20 mg PO HS #90 tab 02/12/17 benazepril-hydrochlorothiazide 1 tab PO QDAY #90 tab 02/12/17 cyclobenzaprine 10 mg PO PRN #30 tab 05/19/17 ondansetron 4 mg PO Q6-8H PRN #10 tab 07/23/18 oxycodone-acetaminophen [Percocet] 1 tab PO Q4-6H PRN #20 tab 02/12/19 Allergies Allergy/AdvReac Type Severity Reaction Status Date / Time ciprofloxacin [From Cipro] Allergy Muscle Pain Verified 03/11/21 20:20 codeine Allergy Verified 03/11/21 20:20 Review of Systems Constitutional Constitutional: Denies chills, Denies fatigue, Denies fever(s) and Reports headache(s) ENT Ears, Nose, Mouth, and Throat: Reports headache(s) Cardiovascular Cardiovascular: Denies chest pain, Denies rapid heart rate and Denies dyspnea Respiratory Respiratory: Denies cough and Denies dyspnea Gastrointestinal Gastrointestinal: Reports abdominal pain, Denies change in bowel habits, Reports nausea and Denies vomiting Genitourinary Genitourinary: Denies dysuria Genitourinary: Denies dysuria Musculoskeletal Musculoskeletal: Denies arthralgias, Denies back pain and Denies myalgias Integumentary/Breasts Skin/Breast: Denies rash Neurologic Neurologic: Denies behavioral changes, Denies confusion and Reports headache(s) Psychiatric Psychiatric: Denies behavioral changes, Denies confusion and Denies depression Endocrine Endocrine: Denies fatigue Hematologic/Lymphatic On Anticoagulants: No Allergic/Immunologic Allergic/Immunologic: Denies urticaria Patient History Medical History Anemia (09/19/16) Chronic low back pain (09/19/16) Essential hypertension (09/19/16) History of carpal tunnel syndrome (09/19/16) History of renal calculi (09/19/16) Ischemic optic neuropathy (09/19/16) Mixed hyperlipidemia (09/19/16) Morbid obesity due to excess calories (09/19/16) Recurrent major depressive disorder (09/19/16) Small bowel obstruction Social History household members: none Smoking Status: Former smoker Smoking Status: Former smoker alcohol intake frequency: 0-2 drinks per day Substance Use Type: marijuana Exam Initial Vital Signs Initial Vital Signs: Vital Signs Temperature 99.1 F 03/11/21 20:20 Pulse Rate 101 H 03/11/21 20:20 Respiratory Rate 15 03/11/21 20:20 Blood Pressure 131/73 03/11/21 20:20 Const General: cooperative and comfortable Limitations: mental status not altered HENMT Head: normal to inspection and normocephalic Eyes General: appearance normal, both eyes and all related structures Resp Effort & Inspection: normal respiratory effort Auscultation: clear to auscultation bilaterally Cardio Rate: tachycardic Rhythm: regular rhythm GI Inspection: non-distended Palpation: soft, No firm and tender (Generalized tenderness) Other: Umbilical hernia that is reducible General: bladder normal to palpation Bimanual Exam- Vagina & Uterus: bladder normal to palpation Skin Lesions: no lesions Rashes: no rashes Neuro General: patient alert, patient awake and patient oriented x3 Cognition: normal cognition Speech: speech normal Extrem General: normal to inspection and capillary refill normal Psych Appearance: grossly normal and well kempt Scores GCS Shannon coma scale eye opening: Spontaneous Shannon coma scale verbal response: Orientated Shannon coma scale motor response: Obey commands Nelson coma scale total score: 15 Course Orders Ordered: ED Orders 03/11/21 20:25 Complete Blood Count AUTO DIFF Stat Comprehensive Metabolic Panel Stat Lactate (Lactic Acid) Stat Lipase Stat Partial Thromboplastin Time Stat Prothrombin Time INR Stat 03/11/21 21:07 EKG-12 Lead Stat 03/11/21 21:35 CT abdomen pelvis w con Stat 03/11/21 23:07 Consult to General Surgery Urgent 03/11/21 23:10 COVID19 - ADMIT (RESISTANCE BRAZER swab/PCR) Stat Morphine Sulfate (Morphine 2 Mg/Ml Inj) 4 mg IV Q4HR PRN PRN Reason: Pain, Mild (1-3) Last Admin: 03/12/21 01:48 Dose: 4 mg Documented by: TONJA Ondansetron HCl (Ondansetron 4 Mg/2 Ml Inj) 4 mg IV Q4HR PRN PRN Reason: Nausea And Vomiting Discontinued Medications Sodium Chloride (Normal Saline 0.9%) 1,000 mls @ 1,000 mls/hr IV BOLUS ONE Stop: 03/11/21 22:33 Last Infusion: 03/11/21 23:20 Dose: 0 mls/hr Documented by: Admin: 03/11/21 21:41 Dose: 1,000 mls/hr Documented by: LATHA Sodium Chloride (Normal Saline 0.9%) 1,000 mls @ 1,000 mls/hr IV BOLUS ONE Stop: 03/11/21 23:52 Last Admin: 03/12/21 01:35 Dose: 1,000 mls/hr Documented by: TONJA Morphine Sulfate (Morphine 4 Mg/Ml Inj) 4 mg IV NOW ONE Stop: 03/11/21 21:35 Last Admin: 03/11/21 21:42 Dose: 4 mg Documented by: LATHA Ondansetron HCl (Ondansetron 4 Mg/2 Ml Inj) 4 mg IV NOW ONE Stop: 03/11/21 21:35 Last Admin: 03/11/21 21:42 Dose: 4 mg Documented by: LATHA Vital Signs Vital signs: Vital Signs - 8 hr 03/11/21 20:20 03/11/21 21:08 03/11/21 21:30 Temperature 99.1 F 98.4 F Pulse Rate 101 H 98 H 102 H Respiratory Rate 15 22 Blood Pressure 131/73 119/66 117/70 Pulse Oximetry 92 93 03/11/21 22:02 03/11/21 22:07 03/11/21 22:30 Temperature Pulse Rate 88 86 83 Respiratory Rate 16 11 L Blood Pressure 123/67 Pulse Oximetry 90 L 94 93 03/11/21 22:31 03/11/21 23:00 Temperature Pulse Rate 84 90 Respiratory Rate 10 L 18 Blood Pressure 111/59 L 122/62 Pulse Oximetry 93 96 Medical Decision Making Lab Data Lab results reviewed: Yes I reviewed the patient's lab results. Result diagrams: 03/11/21 20:25 03/11/21 20:25 Labs: Lab Results 03/11/21 03/11/21 03/11/21 Range/Units 20:25 20:25 20:25 WBC 11.9 H (4.5-11.0) X10^3/uL RBC 5.52 H (4.0-5.2) X10^6/uL Hgb 17.0 H (12.0-16.0) g/dL Hct 50.5 H (36-46) % MCV 91.4 (80-100) fL MCH 30.8 (26-34) PG MCHC 33.7 (30-36) % RDW 13.6 (11.6-14.8) % Plt Count 234 (150-400) X10^3/uL Neut % (Auto) 75.1 H (50-75) % Lymph % (Auto) 16.7 L (25-40) % [place] % (Auto) 7.0 (3-14) % Eos % (Auto) 0.7 L (2-4) % Baso % (Auto) 0.5 (0-2) % Neut # (Auto) 9000 H (5963-7303) /uL Lymph # (Auto) 2000 (9726-2105) /uL [place] # (Auto) 800 (0-900) /uL Eos # (Auto) 100 (0-450) /uL Baso # (Auto) 100 (0-100) /uL PT 12.3 (10.1-12.7) SECONDS INR 1.1 (0.9-1.3) APTT 34 (26.4-36.2) SECONDS Sodium 135 L (137-145) mmol/L Potassium 3.5 (3.4-5.1) mmol/L Chloride 97 L (98-107) mmol/L Carbon Dioxide 30 (22-32) mmol/L BUN 17 (7-17) mg/dL Creatinine 0.56 (0.52-1.04) mg/dL Estimated GFR > 60.0 (>60) mL/min BUN/Creatinine Ratio 30.4 H (6-22) Glucose 114 H (80-110) mg/dL Lactate (0.7-2.1) mmol/L Calcium 10.0 (8.4-10.2) mg/dL Total Bilirubin 0.8 (0.2-1.3) mg/dL AST 33 (14-36) IU/L ALT 28 (<35) IU/L Alkaline Phosphatase 109 (38-126) U/L Total Protein 7.5 (6.3-8.2) g/dL Albumin 4.3 (3.5-5.0) g/dL Globulin 3.2 (1.7-4.1) g/dL Albumin/Globulin Ratio 1.3 (1.0-2.8) Lipase 80 (23-300) U/L SARS-CoV-2 (PCR) (Negative) 03/11/21 03/11/21 Range/Units 20:25 23:10 WBC (4.5-11.0) X10^3/uL RBC (4.0-5.2) X10^6/uL Hgb (12.0-16.0) g/dL Hct (36-46) % MCV (80-100) fL MCH (26-34) PG MCHC (30-36) % RDW (11.6-14.8) % Plt Count (150-400) X10^3/uL Neut % (Auto) (50-75) % Lymph % (Auto) (25-40) % [place] % (Auto) (3-14) % Eos % (Auto) (2-4) % Baso % (Auto) (0-2) % Neut # (Auto) (9497-8625) /uL Lymph # (Auto) (8073-8403) /uL [place] # (Auto) (0-900) /uL Eos # (Auto) (0-450) /uL Baso # (Auto) (0-100) /uL PT (10.1-12.7) SECONDS INR (0.9-1.3) APTT (26.4-36.2) SECONDS Sodium (137-145) mmol/L Potassium (3.4-5.1) mmol/L Chloride (98-107) mmol/L Carbon Dioxide (22-32) mmol/L BUN (7-17) mg/dL Creatinine (0.52-1.04) mg/dL Estimated GFR (>60) mL/min BUN/Creatinine Ratio (6-22) Glucose (80-110) mg/dL Lactate 1.3 (0.7-2.1) mmol/L Calcium (8.4-10.2) mg/dL Total Bilirubin (0.2-1.3) mg/dL AST (14-36) IU/L ALT (<35) IU/L Alkaline Phosphatase (38-126) U/L Total Protein (6.3-8.2) g/dL Albumin (3.5-5.0) g/dL Globulin (1.7-4.1) g/dL Albumin/Globulin Ratio (1.0-2.8) Lipase (23-300) U/L SARS-CoV-2 (PCR) Negative (Negative) Imaging Data CT scan - abdomen/pelvis: Radiologist's Impression: Small-bowel obstruction secondary to a 11.5 cm incarcerated right spigelian hernia ECG Data Attestation: I personally reviewed and interpreted this ECG as follows: Prior ECG tracings: not available for review Interpretation: Sinus rhythm Ventricular rate 99 Normal axis Normal QRS Normal QTC No ST T wave changes MDM Narrative Medical decision making narrative: Patient does have reducible umbilical hernia. She has generalized abdominal tenderness but does have a soft abdomen. Did have 2 bowel movements this morning that was normal for her. She is afebrile. CT scan shows bowel obstruction secondary to hernia. Patient did feel much better after pain medicine and nausea medicine. Discussed the case with Dr. Castanon with General surgery. Will admit for further evaluation and treatment. Discussed the findings of the CT scan with the patient. Discussed the need for admission. She expressed understanding and agreement. Discharge Plan Departure Patient Disposition: Admitted As Inpatient Clinical Impression: Small bowel obstruction, Spigelian hernia with bowel obstruction Admit Date/Time: 03/11/21 23:22 Admit Provider: Lynne Castanon
--- NOTE | 2021-03-11 21:35 | DI.CT.S_ITS ---
PROCEDURE: CT ABDOMEN PELVIS W CON INDICATIONS: Generalized abdominal pain, history of bowel resection TECHNIQUE: After the administration of intravenous contrast, 5 mm thick sections acquired from the diaphragm to the symphysis. 5 mm coronal and sagittal reformats were acquired. For radiation dose reduction, the following was used: automated exposure control, adjustment of mA and/or kV according to patient size. COMPARISON: [facility], CT, ABDOMEN/PELVIS WITH CONTRAST, 04/14/2011, 8:31. [facility], CT, ABDOMEN/PELVIS WITH CONTRAST, 04/07/2011, 21:42. [facility], CT, CT ABDOMEN PELVIS W CON, 07/23/2018, 15:14. FINDINGS: Image quality: Excellent. ABDOMEN: Lung bases: Lung bases are clear. Heart size is normal. Tiny hiatal hernia. Solid organs: Liver is normal in size and enhancement. Gallbladder is normal. Biliary system is non dilated. Pancreas enhances normally. Spleen is normal in size and enhancement. A 1.2 cm cyst is noted in spleen. No adrenal nodules. Kidneys demonstrate normal size and enhancement, without hydronephrosis. There are several small nonobstructive renal calculi in right kidney. A 1.2 cm complex hypodense nodule is seen in the posterior cortex of the mid left kidney. A 1 cm cortical nodule is seen in the superior pole of the right kidney. Peritoneum and bowel: Proximal small bowel loops are mildly dilated and filled with fluid. There is small bowel within a ventral hernia with transitional point within the hernia sac consistent with small bowel obstruction. Colon loops are normal in caliber and wall thickness and caliber. There are scattered colonic diverticula. No CT findings to suggest acute diverticulitis. There is a surgical anastomosis in the sigmoid colon. No free fluid or air. Nodes and vessels: No retroperitoneal or mesenteric adenopathy by size criteria. Aorta and inferior vena cava are normal in size. Moderate atherosclerotic calcification of aorta. Miscellaneous: There is a large ventral hernia in the inferior abdominal wall measuring 6.2 cm AP, 10.4 cm transverse and 9.7 cm longitudinal. The hernia contains small bowel loops and omentum. There is evidence for small bowel obstruction caused within the hernia sac with transitional point. A smaller fat containing hernia is seen just superior to the larger hernia. PELVIS: Genitourinary: Bladder wall thickness is normal. Miscellaneous: No inguinal hernias or adenopathy. Bones: No suspicious bony lesions. No vertebral body compression fractures. Scoliosis and severe degenerative changes in lumbar spine. IMPRESSION: 1. A large ventral hernia containing small intestine causing small bowel obstruction. 2. Diverticulosis without diverticulitis. 3. There are nonobstructive right renal calculi. 4. A 1.1 cm complex nodule in the left kidney. No significant discrepancy with the police shift commander radiology preliminary report. Dictated by: Zia Chand M.D. on 03/12/2021 at 7:36 Approved by: Zia Chand M.D. on 03/12/2021 at 8:57
[2021-03-11] MEDS: SODIUM CHLORIDE 0.9% 1,000 ML 1000 ML IV (21:41)
[2021-03-11] MEDS: ONDANSETRON 4 MG/2 ML INJ IV (21:42)
[2021-03-11] MEDS: MORPHINE 4 MG/ML INJ IV (21:42)
[2021-03-11 23:22] LABS: Lactate (Lactic Acid) 1.3 mmol/L (0.7-2.1)
[2021-03-12] VITALS (9 sets, daily range): BP systolic 115–127; BP diastolic 61–87; PULSE 86–104; RESP 17–30; TEMP 35.9–36.8; O2SAT 91–98; BMI 34.6
[2021-03-12 00:13] LABS: COVID19 - ADMIT (NP swab/PCR) Negative (Negative)
--- NOTE | 2021-03-12 01:00 | DI.RAD.S_ITS ---
PROCEDURE: XR GASTROGRAFIN CHALLENGE COMPARISON: None. INDICATIONS: partial SBO, given gastrografin tonight with film in am FINDINGS: Gastrografin was given by mouth approximately 5 hours prior to imaging. There is oral contrast within the stomach, small bowel and colon loops. Bowel loops are normal in caliber. No transitional point is identified. IMPRESSION: Oral contrast has reached colon by 5 hours. Bowel loops are normal in caliber. No transitional point is identified. Dictated by: Zia Chand M.D. on 03/12/2021 at 10:58 Transcribed by: CODY on 03/12/2021 at 11:03 Approved by: Zia Chand M.D. on 03/12/2021 at 13:37
[2021-03-12] MEDS: SODIUM CHLORIDE 0.9% 1,000 ML 1000 ML IV (01:35)
[2021-03-12] MEDS: MORPHINE 2 MG/ML INJ 4 MG IV ×2 (01:48→05:48)
[2021-03-12] MEDS: ONDANSETRON 4 MG/2 ML INJ IV ×2 (05:12→08:26)
--- NOTE | 2021-03-12 07:36 | PM.HP.1 ---
History of Present Illness History of Present Illness Date Patient Seen: 03/12/21 Time Patient Seen: 09:37 Date of Onset of Symptoms: 03/11/21 Chief complaint: ABD PAIN HEADACHE Narrative: 36 hour history of abdominal pain. some nausea. similar episodes in the past. Reports having bowel surgery for infection where colon and small bowel were taken. She is aware of her incisional hernia. Is currently having success with Weight Watcher. Gastrografin given at 0400 with copious stool this morning and improved abdominal pain. Patient History Medical History Anemia (09/19/16) Chronic low back pain (09/19/16) Essential hypertension (09/19/16) Gout History of carpal tunnel syndrome (09/19/16) History of renal calculi (09/19/16) Ischemic optic neuropathy (09/19/16) Mixed hyperlipidemia (09/19/16) Morbid obesity due to excess calories (09/19/16) Recurrent major depressive disorder (09/19/16) Small bowel obstruction Family & Social History Social History: household members none Prior Living Arrangements House Safety & Behavioral: Feels Safe in Current Yes Environment Been Physically Hurt or No Threatened By a Person Suicidal Ideation Description None Suicide Plan Description No Plan Tobacco & Substance use: Smoking Status Former smoker alcohol intake frequency 0-2 drinks per day Substance Use Type marijuana Meds Home Medications and Allergies Home Medications Medication Instructions Recorded Confirmed Type naproxen sodium [Aleve] 220 mg PO Q DAY PRN #0 04/29/11 03/12/21 History tamsulosin [Flomax] 0.4 mg PO QDAY PRN #30 cap 07/29/13 03/12/21 Rx colchicine 0.6 mg PO QDAY #100 tab 12/25/16 03/12/21 Rx diclofenac sodium [Voltaren] 2 % TOPICAL BID #100 gm 01/09/17 03/12/21 Rx allopurinol 300 mg PO QDAY #90 tab 02/12/17 03/12/21 Rx atorvastatin [Lipitor] 20 mg PO HS #90 tab 02/12/17 03/12/21 Rx benazepril-hydrochlorothiazide 1 tab PO QDAY #90 tab 02/12/17 03/12/21 Rx cyclobenzaprine 10 mg PO PRN #30 tab 05/19/17 03/12/21 Rx ondansetron 4 mg PO Q6-8H PRN #10 tab 07/23/18 03/12/21 Rx oxycodone-acetaminophen [Percocet] 1 tab PO Q4-6H PRN #20 tab 02/12/19 03/12/21 Rx Allergies Allergy/AdvReac Type Severity Reaction Status Date / Time ciprofloxacin [From Cipro] Allergy Muscle Pain Verified 03/11/21 20:20 codeine Allergy Verified 03/11/21 20:20 Review of Systems Review of Systems Narrative: nausea, emesis with Gastrografin. abdominal pain that is lower to mid abdomen resolved with BM. ROS: Yes All systems reviewed with the patient and are negative except as otherwise documented Exam Vital Signs (past 8 hours): - 03/12/21 00:00 03/12/21 00:01 03/12/21 00:20 Temperature 98.1 F Pulse Rate 87 86 87 Respiratory Rate 30 H 17 18 Blood Pressure 115/62 115/62 Pulse Oximetry 93 94 94 03/12/21 01:19 Temperature 97.7 F Pulse Rate 90 Respiratory Rate 18 Blood Pressure 126/78 Pulse Oximetry 96 Oxygen Delivery Method Room Air Oxygen Flow Rate 0 Const General: cooperative and disheveled Nutritional Appearance: well nourished Orientation: alert and oriented x3 HENMT Head: normal to inspection Eyes General: appearance normal, both eyes and all related structures (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 Skin General: turgor normal Hair: general thinning Neuro General: patient alert and patient oriented x3 Extrem General: normal to inspection Psych Appearance: disheveled Mental Status: mental status grossly normal Judgment: judgment good Objective Labs Result Diagrams: 03/11/21 20:25 03/11/21 20:25 Labs: Laboratory Results - last 24 hr 03/11/21 03/11/21 03/11/21 20:25 20:25 20:25 WBC 11.9 H RBC 5.52 H Hgb 17.0 H Hct 50.5 H MCV 91.4 MCH 30.8 MCHC 33.7 RDW 13.6 Plt Count 234 Neut % (Auto) 75.1 H Lymph % (Auto) 16.7 L [place] % (Auto) 7.0 Eos % (Auto) 0.7 L Baso % (Auto) 0.5 Neut # (Auto) 9000 H Lymph # (Auto) 2000 [place] # (Auto) 800 Eos # (Auto) 100 Baso # (Auto) 100 PT 12.3 INR 1.1 APTT 34 Sodium 135 L Potassium 3.5 Chloride 97 L Carbon Dioxide 30 BUN 17 Creatinine 0.56 Estimated GFR > 60.0 BUN/Creatinine Ratio 30.4 H Glucose 114 H Lactate Calcium 10.0 Total Bilirubin 0.8 AST 33 ALT 28 Alkaline Phosphatase 109 Total Protein 7.5 Albumin 4.3 Globulin 3.2 Albumin/Globulin Ratio 1.3 Lipase 80 SARS-CoV-2 (PCR) 03/11/21 03/11/21 20:25 23:10 WBC RBC Hgb Hct MCV MCH MCHC RDW Plt Count Neut % (Auto) Lymph % (Auto) [place] % (Auto) Eos % (Auto) Baso % (Auto) Neut # (Auto) Lymph # (Auto) [place] # (Auto) Eos # (Auto) Baso # (Auto) PT INR APTT Sodium Potassium Chloride Carbon Dioxide BUN Creatinine Estimated GFR BUN/Creatinine Ratio Glucose Lactate 1.3 Calcium Total Bilirubin AST ALT Alkaline Phosphatase Total Protein Albumin Globulin Albumin/Globulin Ratio Lipase SARS-CoV-2 (PCR) Negative Assessment & Plan Assessment & Plan narrative: SBO is resolved incisional hernia does not require repair at this time Plan: advance diet as tolerated. COVID-19 COVID-19 status: Negative Time Spent With Patient Time with patient: 25 - 35 minutes Quality VTE Deep Vein Thrombosis/Pulmonary Embolism Present on Admission: No
[2021-03-12] MEDS: HEPARIN 5,000 UNIT/ML VIAL 5000 UNIT SUBCUT ×2 (08:25→21:59)
[2021-03-12] MEDS: LORazepam 2 MG/ML INJ 0.5 MG IV (09:32)
[2021-03-12 10:07] LABS: NT-proBNP (BNP-Adult 18+) 27 pg/mL (<125)
--- NOTE | 2021-03-12 11:19 | PC.NURSE ---
Assess- Patient had gastrografen for her xray earlier around 0400. She was nauseated, and incontinent of a large amount of stool in her brief. Given zofran around 0800 and this was not effective for nausea. Patient had an emesis of bile about 200cc. She instantly felt better after this, she was also given 0.5m of iv ativan and this was effective for the nausea and she has had not further episodes. She is tolerating gingerale and community director is in room working with her now.
--- NOTE | 2021-03-12 11:46 | CM.DANOTE ---
DCP/Assessment: Reviewed chart. Patient is a 65yr old female admitted to [facility] with abdominal pain. No PCP listed. Primary payor is 1)[facility]. Met with patient this AM. Patient reports that she is not feeling well at time of visit. Per RN, patient had recent BM in bed. Patient's friend/Aileen at bedside. She reports that she will be providing transport home when patient is medically stable. Patient will need priority boarding pass for return to [place]. At this time d/c needs unknown. Patient's friend reports patient primarily I at baseline. Patient currently being followed by surgeon for SBO. Per notes, SBO is resolving and surgery not expected. P: Anticipate home when stable. CM team to follow closely if needs arise. DAVID Fu Discharge Planning/Care Management CM Discharge Assessment Start: 03/12/21 11:41 Freq: Status: Active Protocol: Document 03/12/21 11:41 KJS (Rec: 03/12/21 11:46 [id number]) Discharge Planning Assessment Assigned [employer] Developer DAVID Fu Contact Information Chris and Aileen Gustavo (friends) # [phone] Advance Directives? Yes: From [place]-does not have it with her. Advance Directives on File No History Provided By Patient,Friend,Medical Record Prior Living Arrangements House Household Members none Independent with ADL's Yes Is patient alert and oriented? Yes Caregiver for Another No Comment CPAP for night time use. Comment Patient will need priority boarding pass to return to [place]. Patient's friend is at bedside and agreeable to transport home when medically stable. Discharge Plan Home Whiteboard Updated in Patient Room with Yes name and ext. # of [employer] Automation Developer Review Status In Process Next Review Type Continued Stay Review
[2021-03-12] MEDS: BENAZEPRIL 20 MG TABLET PO (13:09)
[2021-03-12] MEDS: TAMSULOSIN 0.4 MG CAPSULE PO (13:10)
[2021-03-12] MEDS: SODIUM CHLORIDE 0.9% FLUSH 10 ML IV (21:59)
[2021-03-13] VITALS: BP 109/42; PULSE 90; RESP 18; TEMP 37.1; O2SAT 94
[2021-03-13] MEDS: PANTOPRAZOLE 20 MG TABLET PO (05:47)
[2021-03-13 08:00] VITALS: BP 115/71; PULSE 78; RESP 16; TEMP 35.8; O2SAT 96
[2021-03-13] MEDS: TAMSULOSIN 0.4 MG CAPSULE PO (08:10)
[2021-03-13] MEDS: BENAZEPRIL 20 MG TABLET PO (08:11)
[2021-03-13] MEDS: hydroCHLOROthiazide 25 MG TABLET PO (08:11)
[2021-03-13] MEDS: allopurinoL 300 MG TABLET PO (08:11)
[2021-03-13] MEDS: CYCLOBENZAPRINE 10 MG TABLET PO (08:11)
[2021-03-13 08:16] VITALS: O2SAT 96
--- NOTE | 2021-03-13 08:36 | PC.NURSE ---
Pt is dressed and ready for discharge home with Friend Rocio. HL removed. Pt is rushing to make the [place] to Fam this morning. [place] given. Went over d/c instructions with Pt-discussed d/c meds, reviewed stroke education, encouraged her to keep drinking lots of fluids to prevent constipation or deydration (Pt states she drinks 1-2 gallons of water daily). Pt to continue on weight watchers diet. No further questions and Pt is to follow up as needed. Pt out via w/c by [facility] with friend and all belongings.
--- NOTE | 2021-03-13 09:39 | PM.DS.1 ---
History of Present Illness History of Present Illness Chief complaint: ABD PAIN HEADACHE Narrative: 36 hour history of abdominal pain. some nausea. similar episodes in the past. Reports having bowel surgery for infection where colon and small bowel were taken. She is aware of her incisional hernia. Is currently having success with Weight Wat[employer]. Gastrografin given at 0400 with copious stool this morning and improved abdominal pain. Discharge Providers Provider Date of admission: 03/11/21 23:22 Discharge Date: 03/13/21 Consults: 03/11/21 23:07 Consult to General Surgery Urgent Comment: Consulting Provider: Lynne Castanon Reason for consultation: admission Has provider been notified: Yes Discharge provider: Lynne Castanon MD Summary Hospital Course Discharge Diagnosis: Small Bowel obstruction, incisional hernia Hospital Course: prompt resolution of SBO. I did not feel the hernia was the cause. She knows that once she has sustained weight loss she could be consider for hernia repair but it is not required. Status at Discharge Cognitive/behavioral status at discharge: oriented Functional status at discharge: independent ambulation Overall status at discharge: patient is back to baseline Time Spent with Patient Time spent: Less than 30 minutes Exam Vital Signs (past 8 hours): - 03/13/21 08:00 03/13/21 08:16 Temperature 96.4 F L Pulse Rate 78 Respiratory Rate 16 Blood Pressure 115/71 Pulse Oximetry 96 96 Oxygen Delivery Method Room Air Oxygen Flow Rate 0 Const General: cooperative HENMT Head: normal to inspection GI Inspection: normal to inspection and visible herniation Objective Labs Result Diagrams: 03/11/21 20:25 03/11/21 20:25 Labs: Laboratory Results - last 24 hr 03/12/21 08:10 NT-Pro-B Natriuret Pep 27 PFSH Medical History Anemia (09/19/16) Chronic low back pain (09/19/16) Essential hypertension (09/19/16) Gout History of carpal tunnel syndrome (09/19/16) History of renal calculi (09/19/16) Ischemic optic neuropathy (09/19/16) Mixed hyperlipidemia (09/19/16) Morbid obesity due to excess calories (09/19/16) Recurrent major depressive disorder (09/19/16) Small bowel obstruction Social History household members: none Smoking Status: Former smoker Discharge Assessment & Plan Assessment and Plan Assessment: asymptomatic incisional hernia of abdominal wall. resolved small bowel obstruction patient back to baseline Plan of Treatment: Home w/o restriction of diet or activity. No follow up needed. No changes in home medications Discharge Plan Discharge Plan Patient Disposition: Home Provider Discharge Comment: no restrictions. continue Weight [employer] Discharge orders & Medications Prescriptions: Continued naproxen sodium [Aleve] 220 MG tablet 220 mg PO Q DAY PRN Qty: 0 RF: 0 tamsulosin [Flomax] 0.4 MG capsule,extended release 24hr 0.4 mg PO QDAY PRNQty: 30 RF: 1 colchicine 0.6 MG tablet 0.6 mg PO QDAY Qty: 100 RF: 0 diclofenac sodium [Voltaren] 1 % gel 2 % Topical BID Qty: 100 RF: 1 atorvastatin [Lipitor] 20 MG tablet 20 mg PO HS Qty: 90 RF: 3 benazepril-hydrochlorothiazide 20 MG/25 MG tablet 1 tab PO QDAY Qty: 90 RF: 3 allopurinol 300 MG tablet 300 mg PO QDAY Qty: 90 RF: 3 cyclobenzaprine 10 MG tablet 10 mg PO PRN Qty: 30 RF: 1 ondansetron 4 mg tablet,disintegrating 4 mg PO Q6-8H PRN (Reason: nausea and vomiting) Qty: 10 RF: 0 oxycodone-acetaminophen [Percocet] 5-325 mg tablet 1 tab PO Q4-6H PRN (Reason: pain) Qty: 20 RF: 0 Visit Report/Discharge Packet Instructions: DI for Small Bowel Obstruction, DI for Prescription Opioid Use Discharge Data Attending Provider: Lynne Castanon VTE Deep Vein Thrombosis/Pulmonary Embolism Present on Admission: No
== END 2021-03-13 08:39 | disposition home or self-care (01) ==
LOC: ED 23:07 → AC 03-12 03:43
PROVIDERS: Admitting Provider Surgery; Emergency Provider Emergency Medicine; Referring Provider Emergency Medicine; Visit Provider Surgery
DX: K56.609 Unspecified intestinal obstruction, unspecified as to partial versus complete obstruction (principal); K43.2 Incisional hernia without obstruction or gangrene; R51.9 Headache, unspecified; E66.01 Morbid (severe) obesity due to excess calories; E78.2 Mixed hyperlipidemia; F33.9 Major depressive disorder, recurrent, unspecified; I10 Essential (primary) hypertension; D64.9 Anemia, unspecified; Z20.822 Contact with and (suspected) exposure to COVID-19
CPT/HCPCS: 36415; 74018; 74177; 80053; 83605; 83690; 83880; 85025; 85610; 85730; 87635; 93005; 93010; 96361; 96374; 96375; 96376; 99217; 99218; 99284; C9803; G0378; J1644; J2060; J2270; J2405; Q9967